=== PATIENT | female | born 1945 | race African-American/Black ===

== ENCOUNTER 2018-09-09 16:13 | Inpatient (IN) | payer MEDICARE, OTHER ==
[~2018-09-09] VITALS: Ht 160 cm; Wt 57.9 kg
[2018-09-09] VITALS (8 sets, daily range): BP systolic 80–113; BP diastolic 19–88
[2018-09-09] MEDS ORDERED: SODIUM CHLORIDE 0.9% 1,000 ML IVB ONE (16:38)
[2018-09-09] MEDS ORDERED: PANTOPRAZOLE 40 MG/10 ML VIAL IV ONE (16:45)
[2018-09-09 17:09] LABS: Eosinophils # (auto) 0 uL; Hemoglobin 7.8 g/dL (12.2-16.2); Monocytes # (auto) 0.4 uL; Red Cell Distribution Width 18.9 % (11.8-14.3)
[2018-09-09 17:10] LABS: Basophils # (auto) 0.1 uL; Basophils % (auto) 0.7 % (0.0-2.0); Eosinophils % (auto) 0.2 % (0.0-7.0); Lymphocytes # (auto) 0.7 uL; Lymphocytes % (auto) 7.1 % (10.0-50.0); Mean Corpuscular Hemoglobin 19.4 pg (28.0-32.0); Mean Corpuscular Hgb Conc. 30.1 g/dL (32.0-36.0); Mean Corpuscular Volume 64.5 fL (80.0-100.0); Monocytes % (auto) 3.4 % (0.0-12.0); Neutrophils # (auto) 9.3 uL; Neutrophils % (auto) 88.6 % (37.0-80.0); Red Blood Cells 4.02 10^6/uL (4.0-5.20); White Blood Cell 10.5 10^3/uL (4.4-10.8)
[2018-09-09 17:15] LABS: Platelet Count (auto) 912 10^3/uL (140-450)
[2018-09-09 17:21] LABS: Amylase 66 U/L (25-115); Lipase 137 U/L (73-393)
[2018-09-09 17:24] LABS: Albumin 2.5 g/dL (3.4-5.0); Anion Gap 9 (5-15); Calcium 8.1 mg/dL (8.5-10.1); Carbon Dioxide 20 mmol/L (21-32); Chloride 106 mmol/L (98-107); Glucose 125 mg/dL (74-106); Magnesium 2.5 mg/dL (1.6-2.6); Sodium 135 mmol/L (136-145)
[2018-09-09 17:28] LABS: Alanine Aminotransferase 8 U/L (13-56); Alkaline Phosphatase 80 U/L (45-117); Aspartate Aminotransferase 8 U/L (15-37); BUN/Creatinine Ratio 15.2; Bilirubin, Total 0.2 mg/dL (0.2-1.0); GFR African American 7 mL/min; GFR Non-African American 5 mL/min; Total Protein 7.5 g/dL (6.4-8.2)
[2018-09-09 17:37] LABS: Blood Urea Nitrogen 120 mg/dL (7-18); Potassium 8.2 mmol/L (3.5-5.1)
[2018-09-09] MEDS ORDERED: PHYTONADIONE (VIT K)10 MG/ML 1ML VIAL SUBCUT ONE (18:15)
[2018-09-09 19:18] LABS: Basophils # (auto) 0.1 uL; Eosinophils # (auto) 0 uL; Mean Corpuscular Volume 64.5 fL (80.0-100.0); Monocytes # (auto) 0.5 uL; White Blood Cell 11.4 10^3/uL (4.4-10.8)
[2018-09-09 19:20] LABS: Basophils % (auto) 0.5 % (0.0-2.0); Eosinophils % (auto) 0.2 % (0.0-7.0); Hematocrit 26.1 % (36.0-46.0); Lymphocytes # (auto) 0.7 uL; Lymphocytes % (auto) 6.3 % (10.0-50.0); Mean Corpuscular Hemoglobin 19.9 pg (28.0-32.0); Mean Corpuscular Hgb Conc. 30.8 g/dL (32.0-36.0); Monocytes % (auto) 4.4 % (0.0-12.0); Neutrophils % (auto) 88.6 % (37.0-80.0); Red Blood Cells 4.04 10^6/uL (4.0-5.20); Red Cell Distribution Width 18.6 % (11.8-14.3)
[2018-09-09 19:35] LABS: Platelet Count (auto) 777 10^3/uL (140-450)
[2018-09-09 19:38] LABS: Albumin 2.2 g/dL (3.4-5.0); Calcium 7.7 mg/dL (8.5-10.1)
[2018-09-09 19:42] LABS: BUN/Creatinine Ratio 16.1; Bilirubin, Total 0.3 mg/dL (0.2-1.0); Total Protein 6.5 g/dL (6.4-8.2)
[2018-09-09 20:05] LABS: Potassium 7.9 mmol/L (3.5-5.1)
[2018-09-09] MEDS ORDERED: DEXTROSE (50%) 50ML SYRG IV ONE (20:15)
[2018-09-09] MEDS ORDERED: CALCIUM CHL 100MG/ML 1,000 MG in D5W 5% 100 ML IV ONE (20:15)
[2018-09-09] MEDS ORDERED: SODIUM BICARBONATE 8.4% INJ 50ML SYRINGE IV ONE (20:15)
[2018-09-09] MEDS ORDERED: CALCIUM GLUC 4.65meq/50ml D5AE 50 ML IV ONE (20:15)
[2018-09-09] MEDS ORDERED: InsuLIN REG 1unit/0.01ml Soln (100units/ml) IV ONE (20:15)
[2018-09-09] MEDS ORDERED: ACETAMINOPHEN 500 MG TAB PO PRN (21:30)
[2018-09-09] MEDS ORDERED: VANCOMYCIN PER PHARMACY 0 MG IV SCH (22:00)
[2018-09-09] MEDS ORDERED: CALCIUM CHLOR(10%) 100MG/ML 10ML SYRINGE IV ONE (22:19)
--- NOTE | 2018-09-09 22:21 | NUR ---
Respiratory note: ASSESSMENT FOR PRN MED NEB TX. HR 91, SPO2 98% ON 2LNC, RR 17, BS CLEAR/DIMINISHED. PT PRESENTING NO RESPIRATORY DISTRESS AT THIS TIME, MED NEB TX NOT INDICATED. PT AWARE TO HAVE RN PAGE RT IF MED NEB TX IS NEEDED, WILL CONTINUE TO MONITOR.
[2018-09-10] VITALS (15 sets, daily range): BP systolic 102–145; BP diastolic 60–82
[2018-09-10] MEDS ORDERED: oxyCODONE ER 10 MG TAB PO ONE (01:15)
[2018-09-10] MEDS ORDERED: VANCOMYCIN 500 MG in D5W 5% 100 ML IV ONE (02:30)
[2018-09-10] MEDS: SODIUM CHLORIDE 0.9% 1,000 ML IV SCH ×4 (04:00→20:27)
[2018-09-10] MEDS ORDERED: VANCOMYCIN 1GM/250ML 250 ML IV ONE (05:00)
[2018-09-10 06:04] LABS: Basophils # (auto) 0.1 uL; Eosinophils # (auto) 0.2 uL; Hemoglobin 8.3 g/dL (12.2-16.2); Monocytes # (auto) 0.5 uL
[2018-09-10 06:05] LABS: Basophils % (auto) 0.9 % (0.0-2.0); Eosinophils % (auto) 2.1 % (0.0-7.0); Hematocrit 25.1 % (36.0-46.0); Lymphocytes # (auto) 1.5 uL; Lymphocytes % (auto) 15.2 % (10.0-50.0); Mean Corpuscular Hemoglobin 24.1 pg (28.0-32.0); Mean Corpuscular Hgb Conc. 33.3 g/dL (32.0-36.0); Mean Corpuscular Volume 72.5 fL (80.0-100.0); Monocytes % (auto) 5.4 % (0.0-12.0); Neutrophils # (auto) 7.4 uL; Neutrophils % (auto) 76.4 % (37.0-80.0); Platelet Count (auto) 539 10^3/uL (140-450); Red Blood Cells 3.46 10^6/uL (4.0-5.20); White Blood Cell 9.7 10^3/uL (4.4-10.8)
[2018-09-10 06:11] LABS: INR 2.08 (0.9-1.15); Prothrombin Time 21.4 sec (9.27-12.13)
[2018-09-10 06:15] LABS: BUN/Creatinine Ratio 16.6; Calcium 8.6 mg/dL (8.5-10.1)
[2018-09-10 06:22] LABS: Potassium 5.8 mmol/L (3.5-5.1)
--- NOTE | 2018-09-10 07:10 | NUR ---
PT. ASSESSED FOR PRN. MN. TX. , NO RESP. DISTRESS OR SOB NOTED. PT. IS RESTING AT THIS TIME. BS. ARE DIMINISHED AND CLEAR. ZR=433,RR=18,SP02=97% ON 3LPM NC. PRN. TX. NOT INDICATED, NO TX. GIVEN. PT. MAY CALL IF NEEDED.
--- NOTE | 2018-09-10 10:40 | NUR ---
Telemetry admit from ER JEFERSON GE admitted to Telemetry unit after SBAR received by Yvette KHALIL RN. Patient able to answer questions appropriately but noted mild confusion. Patient oriented to Tita Ramos, primary RN, unit, room, bed, and unit policies regarding patient care and visiting hours. Patient now on continuous telemetry monitoring, tele box #23. Unable to visualize tele rhythm at this time, per telephonic case manager Katie she only has tele boxes for [place] monitor ans she states she has notified charge and house sup and they okay'd. Per Katie, she will inform me of any changes to cardiac rhythm since I cannot visualize monitor at this time. Telemetry reading on arrival to unit is sinus tach HR 130's per tele monitor Katie. Patient on room air sat 96%. Unable to obtain accurate weight at this time due to bed malfunction and unable to zero out. Fall precs in place per protocol. Pt encouraged to call if they need something. All questions and concerns addressed, patient verbalized understanding but noted anxious, suspicious. I have reoriented patient and she verbalzied understanding. Will cont care
--- NOTE | 2018-09-10 11:00 | NUR ---
WOUND CARE NOTE: IN TO SEE PATIENT AT THIS TIME PER WOUND CARE CONSULT REQUEST. [facility] COUMADIN TOXICITY. CURRENT JAXON SCORE IS 12. SHE RECENTLY TRANSFERRED TO [facility] FLOOR FROM ER. PATIENT NOTED UPON ADMIT TO HAVE MULTIPLE SKIN INTEGRITY ISSUES. WOUND CONSULT ORDERED WHILE PATIENT STILL IN ER. PATIENT APPEARS CONFUSED. SHE IS ABLE TO ASSIST WITH HER TURNING/REPOSITIONING. 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 SHE DOES HAVE TWO SMALL FULL THICKNESS DFU ULCERS TO STUMP, MEASURING 1.8 X 1.2 CM AND 0.7 X 0.7 CM. WOUNDS COVERED WITH BROWN ESCHAR, NON DRAINING. 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 WOUND MEASURES 4 X 2 CM. WOUND COVERED WITH BROWN ESCHAR. PATIENT HAS MULTIPLE SCARS TO SACRUM, RIGHT/LEFT HIPS. SHE HAS SMALL OPEN PRESSURE ULCER OVER RIGHT SACRUM AND RIGHT HIP. APPLIED ZGUARD AND OPTIFOAM GENTLE DRESSINGS.WOUND PHOTOS TAKEN AT THIS TIME FOR REFERENCE. SKIN/WOUND CARE PLAN IMPLEMENTED. RECOMMEND: FREQUENT TURN SCHEDULED Q 2 HOURS, PRN CONDITION PERMITS, WITH PRESSURE REDISTRIBUTION USING PILLOWS/WEDGES, BID/PRN APPLICATION WITH ZGUARD TO RIGHT HIP AND SACRAL WOUND, COVERING WITH OPTIFOAM GENTLE DRESSINGS, EOD/PRN: BETADINE TO RIGHT STUMP AND HEEL ULCERS, COVERING WITH TELFA AND KERLIX WRAP, DIETARY CONSULT, CONTINUED MONITORING BY WOUND CARE TEAM. Addendum: 09/10/18 at 1803 by Tasha Hall RN Amended: Links added.
[2018-09-10] MEDS: PANTOPRAZOLE 40 MG/10 ML VIAL IV SCH (11:39)
[2018-09-10] MEDS: HYDROcodone-ACET 5/325MG TAB PO PRN (12:04)
--- NOTE | 2018-09-10 12:15 | NUR ---
Agitation Patient very agitated, attempting to get out of bed, states she needs to get "her puppy", states she needs to go home. Pt crying, trying to pull IV out. Attempted to calm patient down and reorient but unsuccessful at this time. MD Morales aware and new orders for Arivan 0.5mg IV [id number] obtained. Per get security public safety officer at bedside, I informed battery charger conveyor line Yumiko but states no available staff at this time but she will get someone. New IV access obtained via clean sterile technique by inserting 22 gauge catheter at LEFT FA after 2 attempt(s). IV secured properly. No trauma to site. Patient tolerated well. Will medicate as ordered. Fall precs in place per protocol. Bed alarm on at all times
[2018-09-10] MEDS: LORazepam 2MG/ML-1ML VIAL IV PRN (12:38)
--- NOTE | 2018-09-10 13:03 | NUR ---
Spoke to Hospitalist MD Morales at bedside assessed patient. aware of status including abnormal labs, vs, increased HR. New orders received. Will cont care
--- NOTE | 2018-09-10 13:50 | NUR ---
bellstand attendant at bedside Rebecca augustin at bedside for patient safety as instructed by MD Morales. Patient resting comfortably in bed in no acute distress or sob. Breathing non labored and symmetrical. Patient arousable to name. Will cont care.
[2018-09-10 14:55] LABS: BUN/Creatinine Ratio 16.1; Calcium 8.2 mg/dL (8.5-10.1)
[2018-09-10 15:22] LABS: INR > 10 (0.9-1.15)
[2018-09-10 15:31] LABS: Potassium 6.2 mmol/L (3.5-5.1)
--- NOTE | 2018-09-10 15:36 | NUR ---
Critical lab Paged MD Morales to notify of critical labs. New orders received for insulin 5 units IV once, Dextrose 50% i amp iv once, calcium gluc IV and sodium bicarb 1 amp 50 ml IV once per hyperkalemia protocol. Will medicate as ordered.
[2018-09-10] MEDS ORDERED: InsuLIN REG 1unit/0.01ml Soln (100units/ml) IV ONE (16:00)
[2018-09-10] MEDS ORDERED: SODIUM BICARBONATE 8.4% INJ 50ML SYRINGE IV ONE (16:00)
[2018-09-10] MEDS ORDERED: CALCIUM GLUC 4.65meq/50ml D5AE 50 ML IV ONE (16:00)
[2018-09-10] MEDS ORDERED: DEXTROSE (50%) 50ML SYRG IV ONE (16:00)
--- NOTE | 2018-09-10 16:45 | NUR ---
IV insertion IV access obtained, via clean sterile technique by inserting 20 gauge catheter at right upper arm after 1 attempt(s). IV secured properly. No trauma to site. Patient tolerated well.
[2018-09-10] MEDS ORDERED: SODIUM BICARBONATE 8.4 % INJ 50ML VIAL IV ONE ×2 (17:00→18:30)
--- NOTE | 2018-09-10 17:02 | NUR ---
Sole Tacker at bedside MD Barajas at bedside, aware of patients status, abnormal labs including critical labs and hyperkalemia treatment to be given as ordered. Pt had moderate amount of black liquid stool, assessed at bedside. New orders received to bolus NS 1000ml IV once, NS at 125ml/hr and transfer to [facility]. I called charge attendant and informed her. Awaiting [facility] bed at this time.
--- NOTE | 2018-09-10 17:26 | NUR ---
[facility] bed assignment Room 262 with Yasmin arreola
[2018-09-10] MEDS ORDERED: SODIUM CHLORIDE 0.9% 1,000 ML IV ONE (17:30)
--- NOTE | 2018-09-10 18:10 | NUR ---
Patient transferred to [facility] Transferred patient to [facility] bed 262 care endorsed to Yasmin arreola. Pt transported via bed with ACLS guidelines and all personal belongings. No s/s of acute distress or sob noted. Pt on 2L n/c.
--- NOTE | 2018-09-10 18:20 | NUR ---
RECEIVED PATIENT FROM ROOM 285B BY THE BED, PATIENT UNRESPONSIVE AND WILL ONLY WITH DRAW TO PAIN AT THIS, FROM THE ATIVAN SHE WAS GIVEN, NS INFUSING AT 1000ML/HR CONNECTED TO THE IV PUMP, CHUA TO GRAVITY, SALINE LOCK TO THE LFA INTACT AND PATENT 22G, PATIENT CLEANED HAS BURGUNDY STOOL COMING FROM TH RECTUM, VS 98.2-390-05-121/70 96% WILL CONTNINUE TO MONITOR AND GIVE REPORT TO THE NEXT SHIFT
[2018-09-10 18:40] LABS: Hematocrit 23.5 % (36.0-46.0); Hemoglobin 7.9 g/dL (12.2-16.2)
--- NOTE | 2018-09-10 19:40 | NUR ---
Opening Shift Note Assumed care of patient, resting with eyes closed, No S/S of distress/SOB or pain, opens eyes to physical stimuli and able to only state her name at this time, patient very sleepy/lethargic with VS WNL. Patient noted to have incontinence of stool (bright/burgundy liquid stool ) which was collected at this time for stool occult, GI consult pending. Patient perineal area cleansed with warm soapy water, new chux placed underneath and patient repositioned for comfort. Bed alarm placed, continue to monitor frequently.
--- NOTE | 2018-09-10 20:11 | NUR ---
Respiratory note: PT ASSESSED FOR PRN MED NEB TX. HR 110, SPO2 93%, RR 15, BS DIMINISHED. PT PRESENTING NO RESPIRATORY DISTRESS, RN AT BEDSIDE. WILL CONTINUE TO MONITOR.
[2018-09-10 22:35] LABS: Urine Bacteria NONE SEEN /hpf (None Seen); Urine Blood 1+ /uL (Negative); Urine Specific Gravity 1.006 (1.001-1.035); Urine WBC 2 /hpf (0 - 5)
[2018-09-11] VITALS: BP 143/94
[2018-09-11] MEDS: SODIUM CHLORIDE 0.9% 1,000 ML IV SCH (02:55)
[2018-09-11 04:00] VITALS: BP 146/66
--- NOTE | 2018-09-11 04:45 | NUR ---
AM CARE/LINEN CHANGE PATIENT NOTED TO HAVE BOWEL INCONTINENCE IN BED, STOOL CONTINUES TO BE BURGUNDY/RED IN COLOR AND LIQUID IN CONSISTENCY PERINEAL AREA CLEANSED WITH WARM SOAPY WATER AND PARTIAL BED BATH GIVEN PARTIAL BED LINEN CHANGE DONE, NEW GOWN PLACED ON PATIENT PATIENT REPOSITIONED IN BED FOR COMFORT
--- NOTE | 2018-09-11 05:15 | NUR ---
PATIENT IS VERY RESTLESS AND AGITATED, CRYING STATING " WHY ARE YOU DOING THIS TO ME?" "WHY ARE YOU TRYING TO HURT ME?" DURING SUPERVISOR SOLDERING ATTEMPTING TO GET MORNING LABS PATIENT CONTINUES TO BE REORIENTED AND ATTEMPT TO REASSURE PATIENT SHE IS IN THE HOSPITAL TAKEN CARE OF PATIENT NOW SEEMS TO BE MORE CALM ONCE REPOSITIONED IN BED AND COVERED WITH SHEETS BED ALARM CONTINUES TO BE IN PLACE CONTINUE TO MONITOR
[2018-09-11 06:08] LABS: Basophils # (auto) 0.1 uL; Basophils % (auto) 1.2 % (0.0-2.0); Eosinophils # (auto) 0.3 uL; Eosinophils % (auto) 2.9 % (0.0-7.0); Hematocrit 25.8 % (36.0-46.0); Hemoglobin 8.6 g/dL (12.2-16.2); Lymphocytes # (auto) 0.8 uL; Lymphocytes % (auto) 8.7 % (10.0-50.0); Mean Corpuscular Hemoglobin 23.8 pg (28.0-32.0); Mean Corpuscular Hgb Conc. 33.4 g/dL (32.0-36.0); Mean Corpuscular Volume 71.4 fL (80.0-100.0); Monocytes # (auto) 0.5 uL; Monocytes % (auto) 4.9 % (0.0-12.0); Neutrophils # (auto) 7.8 uL; Neutrophils % (auto) 82.3 % (37.0-80.0); Platelet Count (auto) 580 10^3/uL (140-450); Red Blood Cells 3.62 10^6/uL (4.0-5.20); White Blood Cell 9.5 10^3/uL (4.4-10.8)
[2018-09-11 06:12] LABS: Calcium 8.5 mg/dL (8.5-10.1)
[2018-09-11 06:13] LABS: Red Cell Distribution Width 26.1 % (11.8-14.3)
[2018-09-11 06:15] LABS: BUN/Creatinine Ratio 15.3
[2018-09-11 06:37] LABS: Potassium 5.7 mmol/L (3.5-5.1)
--- NOTE | 2018-09-11 06:59 | NUR ---
END OF SHIFT PATIENT IN BED RESTING WITH EYES CLOSED, NO S/S OF DISTRESS/SOB OR PAIN AT THIS TIME POX 98% BED ALARM ON PATIENT REMAINED STABLE THROUGHOUT THE NIGHT WILL ENDORSE CARE TO DAY SHIFT RN
--- NOTE | 2018-09-11 07:30 | NUR ---
RECEIVE PATIENT SEMI FOWLES IN BED, O2 AT 2L BY N/C, SALINE LOCK TO THE LFA INFILTRATED, ELICEO WITH NS AT 125ML/HR WITH INFILTRATION, NS STOPPED, CHUA TO GRAVITY, A/O TIMES 2 FOLLOWS COMMANDS BUT STATES SHE DOESN'T WANT TO BE BOTHERED, DENIES PAIN, NOT BEING VERY COOPERATIVE
[2018-09-11 07:50] VITALS: BP 155/86
[2018-09-11] MEDS ORDERED: SODIUM BICARBONATE 8.4 % INJ 50ML VIAL IV ONE (08:00)
[2018-09-11] MEDS ORDERED: InsuLIN REG 1unit/0.01ml Soln (100units/ml) IV ONE (08:00)
[2018-09-11] MEDS ORDERED: ALBUTEROL SULF 2.5 MG/0.5ML(0.5%) NEB SOLN NEB ONE (08:00)
[2018-09-11] MEDS ORDERED: DEXTROSE (50%) 50ML SYRG IV ONE (08:00)
--- NOTE | 2018-09-11 08:30 | NUR ---
PATIENT DIDN'T WANT ANY ONE TO TOUCH HER YELLING FOR US TO LEAVE HER ALONE, WE WERE TRYING TO HURT HER, TRIED TO EXPRESS TO THE PATIENT THAT WE HAVE TO TURN AND DO ASSESSMENT ON HER BUT SHE STATED THAT WAS NOT TRY ASK IF SHE KNOWS HER NAME AND STATED "DO YOU KNOW YOURS," ID FEED PATIENT WAITING FOR GI CONSULT, DUE TO BLEEDING DURING THE SEWING MACHINE OPERATOR SEMIAUTOMATIC
[2018-09-11] MEDS ORDERED: SODIUM BICARBONATE 8.4% INJ 50ML SYRINGE ONE (08:49)
--- NOTE | 2018-09-11 09:30 | NUR ---
WAITING FOR MIDLINE TO BE PLACED IV/ INFILTRATED TO MARKO ARMS
--- NOTE | 2018-09-11 09:30 | NUR ---
DR LLOYD IN TO SEE THE PATIENT AND WROTE ORDERS FOR THE HIGH POTASSIUM LEVEL
--- NOTE | 2018-09-11 09:45 | NUR ---
MIDLINE PLACEMENT Midline placed to the right upper arm via the brachial vein x1 attempt. 18g, 10cm. Positive blood return and flushes easily. Secured with a biodisk, securement device and transparent dressing.
--- NOTE | 2018-09-11 10:29 | NUR ---
Respiratory note: SPOKE TO MAHESH HOUSER RN IN REGARDS TO ASSESSING PATIENT FOR PRN BREATHING TX. MAHESH HOUSER REQUESTED TO LEAVE PATIENT SHE IS. PATIENT DOESN'T SEEM TO BE IN RESPIRATORY DISTRESS. RR 22, HR 145, SPO2 100% ON 4 L NASAL CANNULA. MILTON ARAGON IS AWARE TO HAVE ME PAGED IF PATIENT NEEDS BREATHING TX. WILL CONTINUE TO MONITOR PATIENT AND COMMUNICATION WITH RN.
--- NOTE | 2018-09-11 10:30 | NUR ---
EXPLAIN MEDICATIONS TO THE PATIENT REGARDING THE DOSAGE, USAGE, AND THE SIDE EFFECTS,
[2018-09-11] MEDS: PANTOPRAZOLE 40 MG/10 ML VIAL IV SCH ×2 (10:31→21:07)
--- NOTE | 2018-09-11 11:45 | NUR ---
MIDLINE 18G, PLACED TO THE ELICEO DUE TO OTHER IV, INFILTRATION TO THE LFA AND ELICEO BOTH REMOVED
[2018-09-11 11:50] VITALS: BP 111/51
--- NOTE | 2018-09-11 12:05 | NUR ---
FRIEND THAT LIVES CLOSE TO THE PATIENT A CAME TO SEE HER AND STATED SHE WOULD LET THE FAMILY KNOW SHE IS HERE
--- NOTE | 2018-09-11 12:30 | NUR ---
NURSE FROM [facility] CAME TO SEE THE PATIENT
[2018-09-11] MEDS: SODIUM BICARB 50ML SYR 50 ML in SOD CHL 0.45% 1,000 ML IV SCH (13:00)
--- NOTE | 2018-09-11 13:30 | NUR ---
DR JOE IN TO SEE THE PATIENT AND WROTE NEW ORDERS
--- NOTE | 2018-09-11 13:40 | NUR ---
DR ESPINOSA IN TO SEE THE PATIENT AND STATES, THAT HE IS GOING TO WAIT AND SEE IF HER HEART RATE COMES DOWN BEFORE HE WILL TAKE HER TO SURGERY
[2018-09-11] MEDS ORDERED: cefTRIAXone 1GM/50ML D5W 50 ML IV ONE (14:00)
--- NOTE | 2018-09-11 14:30 | NUR ---
PATIENT APPEARS TO BE SLEEPING BUT OPEN EYES WHEN YOU CALL HER NAME
--- NOTE | 2018-09-11 14:31 | NUR ---
Nutrition Assessment/consult Notes please see attached link fro complete assessment Est. Needs BW [id number] kcal (25-30 kcal/kgBW), 42-53 gms pro (0.8-1.0 gms/kgBW r/t elev RFT). Will continue to monitor pertinent labs and reassess nutrient needs prn. Addendum: 09/11/18 at [address] Amended: Links added.
--- NOTE | 2018-09-11 15:30 | NUR ---
SAT UP AND DRANK SOME WATER BUT WENT BACK TO SLEEP
[2018-09-11 15:51] VITALS: BP 107/74
[2018-09-11 16:03] LABS: Lactic Acid w/Reflex 4.1 mmol/L (0.4-2.0)
--- NOTE | 2018-09-11 16:05 | NUR ---
SPOKE TO THE FAMILY ON THE PHONE AND THE GRANDDAUGHTER CAME TO VISIT THE PATIENT, BUT SHE WOULD NOT TALK TO HER WHEN SHE WOKE HER BUT PATIENT APPEARED TO KNOW WHO SHE WAS
--- NOTE | 2018-09-11 17:35 | NUR ---
WOKE PATIENT UP AND GAVE HER A DRINK OF WATER
--- NOTE | 2018-09-11 18:03 | NUR ---
SITTING UP IN THE BED WITH EYE CLOSED, APPEARS TO BE SLEEPING BUT OPEN HER EYES AND WILL TALK TO YOU IF YOU WAKE HER UP
--- NOTE | 2018-09-11 18:30 | NUR ---
SEMI FOWLERS IN BED APPEARS TO BE SLEEPING EYES CLOSED, .45 WITH SODIUM BICARB INFUSING AT 75ML/HR INTO THE ELICEO MIDLINE BY THE IV PUMP, CHUA TO GRAVITY, DRESSING TO THE RT FOOT INTACT, NO COMPLAINTS OF PAIN WILL CONTNINUE TO MONITOR AND GIVE REPORT TO THE NEXT SHIFT
--- NOTE | 2018-09-11 19:45 | NUR ---
PATIENT KIERSTEN EARLY AND NEPHCHIP AT PATIENT [facility]
[2018-09-11 19:50] VITALS: BP 132/70
[2018-09-11] MEDS: HYDROcodone-ACET 5/325MG TAB PO PRN (21:08)
--- NOTE | 2018-09-11 21:45 | NUR ---
LAB AT BEDSIDE ATTEMPTING TO DRAW BLOOD PATIENT VERY UNCOOPERATIVE AT THIS TIME YELLING " DON'T TOUCH ME, LEAVE ME ALONE" AND PULLING ARM AWAY FROM RELIEF SALESPERSON. PATIENT VERY RESTLESS AND HOSTILE LAB INFORMED TO TRY AGAIN IN THE MORNING
--- NOTE | 2018-09-11 21:45 | NUR ---
SPOKE WITH HOSPITALIST TEMITOPE NORRIS OVER THE PHONE UPDATED ON PATIENT STATUS AND REASON FOR [facility]IM XFER
[2018-09-12] VITALS (9 sets, daily range): BP systolic 116–158; BP diastolic 57–95
--- NOTE | 2018-09-12 00:33 | NUR ---
RIGHT UPPER ARM MIDLINE DRESSING CHANGE DONE USING STERILE TECHNIQUE PATIENT TOLERATED WELL
[2018-09-12] MEDS: HYDROcodone-ACET 5/325MG TAB PO PRN ×3 (01:21→22:15)
--- NOTE | 2018-09-12 04:00 | NUR ---
PT SEEN SLEEPING IN BED ON 3L NC, SPO2 100%, BS CLEAR AND DIMINISHED. NO RESP DISTRESS NOTED. NO PRN NEB TX INDICATED AT THIS TIME.
--- NOTE | 2018-09-12 04:30 | NUR ---
AM CARE/WOUND CARE PATIENT HAD EPISODE OF STOOL INCONTINENCE, NOTED TO BE LIQUID AND BLOODY. GIVEN PARTIAL BED BATH AND PERINEAL AREA CLEANSED USING WARM SOAPY WATER. SKIN INTEGRITY REASSESSED FOR ANY CHANGES AT THIS TIME. RIGHT HIP AND BUTTOCK DRESSING WYNN DONE PER ORDERS. Z-GUARD APPLIED TO COCCYX/SACRUM. PARTIAL LINEN CHANGE DONE AND NEW GOWN PLACED ON PATIENT. RIGHT FOREFRONT AND HEEL WOUND CARE DONE AND DRESSING DONE PER ORDERS. PATIENT REPOSITIONED FOR COMFORT.
--- NOTE | 2018-09-12 04:35 | NUR ---
POM COLLECTED PATIENT STATES SHE TAKES OXYCODONE FOR PAIN MANAGEMENT AND PILLS ARE IN HER PURSE. EDUCATED PATIENT ON THIS RN INPUTTING THEM INTO MED REC AND HOSPITAL POLICY REGARDING MEDICATION AT BEDSIDE. INSTRUCTED PATIENT MEDICATION WILL BE TAKEN TO PHARMACY. PATIENT VERBALIZES UNDERSTANDING. PILL COUNT VERIFIED WITH RN RENO AT BEDSIDE. WILL SEND TO PHARMACY . COPY GIVEN TO PATIENT AND SECOND COPY PLACED IN HARD CHART.
--- NOTE | 2018-09-12 04:45 | NUR ---
PATIENT MOOD PATIENT IS VERY ANXIOUS AND COMBATIVE, STATING WE ARE HURTING HER WHEN ASSESSING VITAL SIGNS. PATIENT MOOD IS VERY LABILE:ANGRY AND HOSTILE ONE MOMENT AND CRYING THE NEXT. CONTINUES TO BE VERY AGGRESSIVE AND RESISTANT TO CARE.PATIENT HAS PERIODS OF CONFUSION WHEN DOING WOUND CARE PATIENT DOES NOT REMEMBER WOUNDS ON RIGHT FOOT DESPITE BEING ADMITTED WITH THEM. PATIENT YELLING "WHY DO YOU WANT TO KILL ME" ASSURED PATIENT WE ARE DOING OUR BEST TO CARE FOR HER AND REORIENTED FREQUENTLY THROUGHOUT THE NIGHT. ATIVAN PRN WILL BE GIVEN PER ORDERS. CONTINUE TO MONITOR.
[2018-09-12] MEDS: SODIUM BICARB 50ML SYR 50 ML in SOD CHL 0.45% 1,000 ML IV SCH ×2 (04:49→15:57)
[2018-09-12] MEDS: LORazepam 2MG/ML-1ML VIAL IV PRN (04:56)
[2018-09-12 05:52] LABS: Basophils # (auto) 0 uL; Basophils % (auto) 0.5 % (0.0-2.0); Eosinophils # (auto) 0.3 uL; Eosinophils % (auto) 3.8 % (0.0-7.0); Lymphocytes # (auto) 0.9 uL; Lymphocytes % (auto) 10.8 % (10.0-50.0); Mean Corpuscular Hemoglobin 23.6 pg (28.0-32.0); Neutrophils # (auto) 6.4 uL; White Blood Cell 8.3 10^3/uL (4.4-10.8)
[2018-09-12 05:56] LABS: Hematocrit 23.5 % (36.0-46.0); Hemoglobin 7.8 g/dL (12.2-16.2); Mean Corpuscular Volume 71.4 fL (80.0-100.0); Monocytes # (auto) 0.7 uL; Monocytes % (auto) 8.3 % (0.0-12.0); Neutrophils % (auto) 76.6 % (37.0-80.0); Platelet Count (auto) 534 10^3/uL (140-450)
[2018-09-12 06:01] LABS: Red Cell Distribution Width 27.1 % (11.8-14.3)
[2018-09-12 06:02] LABS: INR 1.16 (0.9-1.15); Prothrombin Time 12.3 sec (9.27-12.13)
[2018-09-12 06:11] LABS: Potassium 4.7 mmol/L (3.5-5.1)
[2018-09-12 06:15] LABS: BUN/Creatinine Ratio 13.9
--- NOTE | 2018-09-12 06:26 | NUR ---
Respiratory note: ROUTINE PRN CHECK. HR 107, RR16, POX 100% ON 2L/M NC, BREATH SOUNDS ARE CLEAR. NO SOB OR DISTRESS NOTED. PT WAS NOTIFY TO HAVE RN PAGE RT FOR MN TX.
--- NOTE | 2018-09-12 07:25 | NUR ---
CARE ENDORSED TO DAY SHIFT RN CHERYL ENDORSED POM TO RN,PATIENT IN BED RESTING WITH EYES CLOSED, VS WNL POX 100%, HR 108. NO DISTRESS/SOB NOTED, BED ALARM ON.
--- NOTE | 2018-09-12 10:38 | NUR ---
Dr Barajas at bedside to assess patient, updated on patient status. Received verbal order for Neuro and Social Service Consult. Read back and verified. Will carry out.
[2018-09-12] MEDS: cefTRIAXone 1GM/50ML D5W 50 ML IV SCH (11:05)
[2018-09-12] MEDS: PANTOPRAZOLE 40 MG/10 ML VIAL IV SCH ×2 (11:05→22:00)
--- NOTE | 2018-09-12 11:18 | NUR ---
Dr Morales at bedside to assess patient, updated on patient's status. Received verbal order to transfuse 1 unit PRBC, read back and verified. Will carry out.
--- NOTE | 2018-09-12 12:03 | NUR ---
Ultrasound personnel at bedside to check RT Upper Arm for DVT, patient yelling, screaming and refusing stating "It's hurting, you're trying to kill me, leave me alone, they already know I have a clot in that arm." Educated on importance of being able to check arm for clots, patient still refusing.
--- NOTE | 2018-09-12 14:15 | NUR ---
Dr Nolasco at bedside to assess patient, updated on patient's status. Will carry out new orders.
--- NOTE | 2018-09-12 14:30 | NUR ---
Patient had moderate amount of liquid bloody stool, given perineal care. Skin integrity assessed for any changes. Linens changed. Patient repositioned for comfort.
[2018-09-12] MEDS ORDERED: VANCOMYCIN 500 MG in D5W 5% 100 ML IV ONE (15:30)
--- NOTE | 2018-09-12 16:23 | NUR ---
Paged Dr Morales and called back. Made aware of RT arm venous US report, RT brachial DVT and RT basilic and cephalic superficial thrombus. Received telephone order to discontinue Midline and insert PICC line. Made aware of patient BP 158/81, received telephone orders for Catapres PRN. Orders read back and verified. Will carry out.
[2018-09-12] MEDS ORDERED: cloNIDine HCL 0.1 MG TAB PO PRN (16:45)
--- NOTE | 2018-09-12 16:50 | NUR ---
Paged PICC line RN via PBX, awaiting call back.
--- NOTE | 2018-09-12 18:41 | NUR ---
Paged Dr Euceda and called back, updated on patient's status. Made aware this is a GI bleed patient with RT brachial DVT, RT basilic and cephalic superficial thrombus base on venous ultrasound report. Per Dr Euceda he will see patient in the morning.
--- NOTE | 2018-09-12 18:43 | NUR ---
Re-paged adaptive physical education teacher PICC line RN, awaiting call back.
--- NOTE | 2018-09-12 18:59 | NUR ---
Patient refused to be turn at this time and states "leave me alone lady"
--- NOTE | 2018-09-12 21:03 | NUR ---
PAGE TO HOUSE SUP REGARDING MIDLINE
--- NOTE | 2018-09-12 22:19 | NUR ---
Respiratory note: PT SEEN AND ASSESSED FOR PRN MED NEB TX AT 2219. TX NOT INDICATED AT THIS TIME. PT DENIES ANY RESPIRATORY DISTRESS. HR 99 RR 20 POX 100% ON 2L NASAL CANNULA. BREATH SOUNDS WERE CLEAR AND DIMINISHED. PT AWARE TO CALL FOR RT IF ANY DISTRESS OCCURS.
--- NOTE | 2018-09-12 23:00 | NUR ---
IV insertion IV access obtained by Corey hurdsuperintendent house, via clean sterile technique by inserting 22 gauge catheter at left wrist after 2 attempt(s). IV secured properly. No trauma to site. Patient tolerated well. NOTE: Midline to right upper arm d/c, pressure dressing applied, catheter intact.
[2018-09-13] VITALS: BP 147/76
[2018-09-13] MEDS ORDERED: SODIUM BICARBONATE 8.4% INJ 50ML SYRINGE ONE (02:57)
--- NOTE | 2018-09-13 03:20 | NUR ---
AM CARE / DRESSING CHANGE PATIENT HAD INCONTINENCE, DARK TARRY STOOL NOTED. PERINEAL AREA CLEANSED AND COMPLETE BED BATH GIVEN USING WARM SOAPY WATER. SKIN INTEGRITY REASSESSED AT THIS TIME. NO NEW CHANGES. PARTIAL BED LINEN CHANGE DONE AND NEW GOWN PLACED ON PATIENT. WOUND CARE DONE TO LEFT HIP AND NEW OPTIFOAM PLACED. ZGUARD CREAM APPLIED AND OPTIFOAM TO SACRUM/COCCYX FOR PREVENTION OF BED SORES. LOTION PLACED OVER BODY PER PATIENT REQUEST. PATIENT REPOSITIONED IN BED FOR COMFORT . BED ALARM ON.
[2018-09-13] MEDS: SODIUM BICARB 50ML SYR 50 ML in SOD CHL 0.45% 1,000 ML IV SCH ×2 (03:27→20:00)
[2018-09-13] MEDS: HYDROcodone-ACET 5/325MG TAB PO PRN ×4 (03:27→22:06)
[2018-09-13 06:16] LABS: INR 1.07 (0.9-1.15); Prothrombin Time 11.4 sec (9.27-12.13)
[2018-09-13 06:17] LABS: Albumin 1.9 g/dL (3.4-5.0); Anion Gap 8 (5-15); Calcium 8.1 mg/dL (8.5-10.1); Carbon Dioxide 29 mmol/L (21-32); Chloride 105 mmol/L (98-107); Glucose 90 mg/dL (74-106); Potassium 4.5 mmol/L (3.5-5.1); Sodium 142 mmol/L (136-145)
[2018-09-13 06:21] LABS: Alanine Aminotransferase < 6 U/L (13-56); Alkaline Phosphatase 63 U/L (45-117); Aspartate Aminotransferase 15 U/L (15-37); BUN/Creatinine Ratio 13.2; Bilirubin, Total 0.4 mg/dL (0.2-1.0); GFR African American 8 mL/min; GFR Non-African American 7 mL/min
[2018-09-13 06:24] LABS: Basophils # (auto) 0.1 uL; Basophils % (auto) 1.1 % (0.0-2.0); Blood Urea Nitrogen 86 mg/dL (7-18); Eosinophils # (auto) 0.6 uL; Eosinophils % (auto) 6.7 % (0.0-7.0); Hematocrit 29.7 % (36.0-46.0); Hemoglobin 9.7 g/dL (12.2-16.2); Lymphocytes # (auto) 0.4 uL; Lymphocytes % (auto) 5.3 % (10.0-50.0); Mean Corpuscular Hemoglobin 23.9 pg (28.0-32.0); Mean Corpuscular Hgb Conc. 32.5 g/dL (32.0-36.0); Mean Corpuscular Volume 73.4 fL (80.0-100.0); Monocytes # (auto) 0.5 uL; Neutrophils # (auto) 6.6 uL; Neutrophils % (auto) 80.9 % (37.0-80.0); Platelet Count (auto) 545 10^3/uL (140-450); Red Blood Cells 4.04 10^6/uL (4.0-5.20); White Blood Cell 8.2 10^3/uL (4.4-10.8)
[2018-09-13 06:30] LABS: Red Cell Distribution Width 27.6 % (11.8-14.3)
--- NOTE | 2018-09-13 07:30 | NUR ---
RECEIVED PATIENT SITTING UP IN THE BED A/O TIMED 3. O2 BY R/A, .45 WITH SODIUM BICAB INFUSING INTO THE LEFT WRIST BY THE IV PUMP, CHUA TO GRAVITY, PLACED THE RT ARM UP ON A PILLOW DUE TO SWELLING, DRESSING TO THE RT FOOT, DENIES PAIN AT THIS TIME
--- NOTE | 2018-09-13 07:45 | NUR ---
DR HERNDON IN TO SEE THE PATIENT AND ORDERED A CT OF THE HEAD AND EEG
[2018-09-13 07:59] VITALS: BP 130/75
--- NOTE | 2018-09-13 08:29 | NUR ---
PICC LINE CONSULT SPOKE TO MILTON MOJICA. CONSENT SIGNATURE PENDING AT THIS TIME, ADVISED TO NOTIFY AT 4141 WHEN CONSENT IS SIGNED.
--- NOTE | 2018-09-13 08:30 | NUR ---
PATIENT WAS FEED HER BREAKFAST AND TOLERATED
--- NOTE | 2018-09-13 09:15 | NUR ---
DR LLOYD AND DR SIERRA IN TO SEE THE PATIENT
[2018-09-13] MEDS: cefTRIAXone 1GM/50ML D5W 50 ML IV SCH (09:33)
[2018-09-13] MEDS: PANTOPRAZOLE 40 MG/10 ML VIAL IV SCH ×2 (09:33→22:06)
--- NOTE | 2018-09-13 09:35 | NUR ---
MEDS EXPLAIN TO THE PATIENT REGARDING THE DOSAGE, USAGE, SIDE EFFECTS, AND VERBALIZED THAT SHE UNDERSTOOD AND MEDS GIVEN ORDERED
--- NOTE | 2018-09-13 10:00 | NUR ---
TALKING ON THE PHONE TO HER DAUGHTER
--- NOTE | 2018-09-13 10:00 | NUR ---
DR JOE IN TO SEE THE PATIENT AND SPOKE TO HER REGARDING THE POC FOR TODAY
--- NOTE | 2018-09-13 10:20 | NUR ---
PATIENT TO CT BY THE BED WITH NURSE SP ROSE
[2018-09-13] MEDS ORDERED: HEPARIN SODIUM (PORCINE) 5000 UNITS/ML 1ML VIAL IV SCH (10:45)
--- NOTE | 2018-09-13 10:51 | NUR ---
BACK FROM THE CT OF THE HEAD
--- NOTE | 2018-09-13 10:57 | NUR ---
FRIEND MINERVA IN TO SEE THE PATIENT
--- NOTE | 2018-09-13 11:04 | NUR ---
NOTIFIED NEIL ROSE THAT THE PICC LINE CONSENT WAS SIGNED BY THE MD AND X-RAY OF THE LEFT ARM WAS NEGATIVE FOR A DVT
[2018-09-13 11:06] LABS: Basophils # (auto) 0.1 uL; Eosinophils # (auto) 0.6 uL; Lymphocytes # (auto) 0.5 uL; Neutrophils # (auto) 8.8 uL
[2018-09-13 11:09] LABS: Basophils % (auto) 0.8 % (0.0-2.0); Eosinophils % (auto) 5.6 % (0.0-7.0); Hematocrit 33.3 % (36.0-46.0); Lymphocytes % (auto) 4.4 % (10.0-50.0); Mean Corpuscular Hemoglobin 24.3 pg (28.0-32.0); Mean Corpuscular Hgb Conc. 32.9 g/dL (32.0-36.0); Mean Corpuscular Volume 73.7 fL (80.0-100.0); Monocytes # (auto) 0.6 uL; Monocytes % (auto) 5.6 % (0.0-12.0); Neutrophils % (auto) 83.6 % (37.0-80.0); Platelet Count (auto) 681 10^3/uL (140-450); Red Blood Cells 4.53 10^6/uL (4.0-5.20); White Blood Cell 10.6 10^3/uL (4.4-10.8)
[2018-09-13 11:14] LABS: Red Cell Distribution Width 27.3 % (11.8-14.3)
[2018-09-13 11:25] LABS: INR 1.07 (0.9-1.15); Partial Thromboplastin Time 27.9 sec (23.78-33.04); Prothrombin Time 11.4 sec (9.27-12.13)
--- NOTE | 2018-09-13 11:43 | NUR ---
MEDICATED FOR PAIN WITH NORCO FOR PAIN TO THE RT LEG 05/24
[2018-09-13 11:50] VITALS: BP 150/77
--- NOTE | 2018-09-13 11:51 | NUR ---
NEIL RN HERE TO SE THE PATIENT THE PICC LINE NURSE
--- NOTE | 2018-09-13 12:55 | NUR ---
DR ESPINOSA IN TO SEE THE PATIENT
--- NOTE | 2018-09-13 13:13 | NUR ---
PICC/Midline placement Patient educated on need for PICC line placement. All risks and benefits explained and all questions and concerns addressed prior to procedure. Noted past medical history and allergies with no contraindications. INR and Plt counts within acceptable range. 5 fr PICC line inserted via left brachial vein using [employer] US and Tip Location System. There was difficulty for PICC line to go down to SVC, PICC line looped several times at axillary area. After multiple attempts to thread the 41 cm PICC line in, it had to bed cut to 31 cm and leave it right before looping. EBL approcimately 10 mls. Tolerated well during procedure with help of primary RN, Yasmin, who comforted her during the procedure. Sterile technique with maximum barrier precautions utilized. Blood return obtained only from two of the three lumens, three lumens each flushed easily with NS using proper technique. PICC secured with Stat-lock; biodisc and occlusive dressing applied. Stat portable chest x-ray obtained for PICC/midline tip placement. *Baseline Arm Circumference 29. *Internal Length 31 cm. *External Length 3 cm. *PICC lot #[id number].
[2018-09-13] MEDS ORDERED: LIDOCAINE 1% (LOCAL ANESTH.) PF 5ml SDV ID ONE (13:15)
--- NOTE | 2018-09-13 13:23 | NUR ---
PER DR JOE HE SPOKE WITH DR NOE REGARDING THE PODIATRY CONSULT
[2018-09-13] MEDS: HEPARIN DRIP/D5W 100UNITS/ML 250 ML IV SCH (13:45)
--- NOTE | 2018-09-13 13:45 | NUR ---
HEPARIN STARTED AT 9ML/HR INFUSING INTO THE ELICEO PICC LINE
--- NOTE | 2018-09-13 14:17 | NUR ---
Okay to use PICC line X-ray completed per report it is a PICC line at the subclavian area.Primary RN notified.
--- NOTE | 2018-09-13 14:55 | NUR ---
DR PACHECO HERE AND DRESSING REMOVED AND ORDERS GIVEN FOR X-RAYS FOR THE PATIENT
--- NOTE | 2018-09-13 14:59 | NUR ---
Nutrition Follow-up Notes Wt.: 54.0 kg Pt was sleeping with no family by bedside. per recods pt with Coumadin toxicity, GI bleed. pt with no distress noted. pt is currently on clear liq diet with inadequate PO of 25% x 3 per RN doc Est. Needs BW [id number] kcal (25-30 kcal/kgBW), 42-53 gms pro (0.8-1.0 gms/kgBW r/t elev RFT). Will continue to monitor pertinent labs and reassess nutrient needs prn. Labs: BUN 86 H, CREAT 6.51 H, ALB 1.9 L, CA 8.1 L. Skin: Senthil scale 11, high risk, multiple pressure ulcers per RN doc. refer to WC notes for details GI: Pt had 1 BM yesterday per front office director. PES: Altered nutrition related lab values r/t current/chronic medical condition aeb elev RFT, severe hypoalb Will continue to monitor PO intake, skin status, pertinent labs and weight trend. F/u in 2 to 3 days. Rec.: 1.) advance diet as medically feasible. 2) consider ensure clear 1 carton bid if pt continues on cld. 3) continue assistance with meals. 4) consider MVI/C bid. 5) continues current plan of care
--- NOTE | 2018-09-13 15:15 | NUR ---
X RAY HERE TAKING PICTURES OF THE RT FOOT
--- NOTE | 2018-09-13 15:32 | NUR ---
DRESSING CHANGED TO REPLACED TO THE RT FOOT,
[2018-09-13] MEDS: ALBUTEROL SULF 2.5 MG/0.5ML(0.5%) NEB SOLN NEB PRN (15:35)
[2018-09-13] MEDS: IPRATROPIUM BROM 0.5 MG/2.5ML INH SOL NEB PRN (15:35)
[2018-09-13 15:50] VITALS: BP 110/64
--- NOTE | 2018-09-13 15:54 | NUR ---
MEDICATED FOR PAIN WITH NORCO10/10 TO THE RT FOOT
--- NOTE | 2018-09-13 16:54 | NUR ---
SITTING UP IN BED TALKING TO HER NEPHEW
--- NOTE | 2018-09-13 18:36 | NUR ---
SITTING UP IN THE BED, O2 BY R/A, A/O TIMES 3, ABLE TO FOLLOW COMMANDS, HEPARIN INFUSING AT 9ML/HR BY THE IV PUMP INTO THE RICK PICC LINE AND .45 WITH SODIUM OF BICARB INFUSING INTO THE RICK PICC LINE AT 75ML/HR BY THE IV PUMP, CHUA TO GRAVITY, 22G SALINE LOCK TO THE LEFT WRIST, DRESSING TO THE RT FOOT, WILL CONTINUE TO MONITOR AND GIVE REPORT TO THE NEXT SHIFT
--- NOTE | 2018-09-13 19:01 | NUR ---
Respiratory note: ASSESSED PT FOR PRN MED NEB, PT SLEEPING AT THIS TIME, NO RESP DISTRESS NOTED, NO TX INDICATED, PULSE OX 96% ON RA, HR 111, RR 20, BILATERAL BS CLEAR.
[2018-09-13 19:50] LABS: Hemoglobin 9.4 g/dL (12.2-16.2)
[2018-09-13 19:52] LABS: Hematocrit 28.3 % (36.0-46.0)
[2018-09-13 19:56] LABS: Folate (Folic Acid) 4.68 ng/mL (5.38-24)
[2018-09-13 19:57] VITALS: BP 88/45
[2018-09-13 20:48] LABS: INR 1.08 (0.9-1.15); Partial Thromboplastin Time 50.4 sec (23.78-33.04); Prothrombin Time 11.5 sec (9.27-12.13)
[2018-09-13] MEDS: SODIUM CHLOR 0.9% PF (SALINE LOCK) 10ML VIAL/SYR IV SCH (22:20)
--- NOTE | 2018-09-13 22:22 | NUR ---
PT ON HEPARIN GTT AT 900 UNITS/HR. APTTAT 2300 WAS 50.4, NO RATE CHANGE REQUIRED
[2018-09-13 23:14] LABS: Hematocrit 31.6 % (36.0-46.0); Hemoglobin 10.4 g/dL (12.2-16.2)
[2018-09-14] VITALS: BP 142/67
[2018-09-14 04:00] VITALS: BP 151/80
[2018-09-14 05:39] LABS: Basophils # (auto) 0.1 uL; Eosinophils # (auto) 0.5 uL; Lymphocytes # (auto) 0.7 uL; Monocytes # (auto) 0.5 uL; Neutrophils # (auto) 6.4 uL; Neutrophils % (auto) 78.3 % (37.0-80.0); White Blood Cell 8.2 10^3/uL (4.4-10.8)
[2018-09-14 05:41] LABS: Basophils % (auto) 1.1 % (0.0-2.0); Eosinophils % (auto) 6.1 % (0.0-7.0); Hematocrit 29.8 % (36.0-46.0); Lymphocytes % (auto) 8.3 % (10.0-50.0); Mean Corpuscular Hemoglobin 24.7 pg (28.0-32.0); Mean Corpuscular Hgb Conc. 33.6 g/dL (32.0-36.0); Mean Corpuscular Volume 73.6 fL (80.0-100.0); Monocytes % (auto) 6.2 % (0.0-12.0); Platelet Count (auto) 610 10^3/uL (140-450); Red Blood Cells 4.05 10^6/uL (4.0-5.20)
[2018-09-14 05:46] LABS: INR 1.09 (0.9-1.15); Prothrombin Time 11.6 sec (9.27-12.13)
[2018-09-14 05:51] LABS: Calcium 7.8 mg/dL (8.5-10.1); Potassium 3.7 mmol/L (3.5-5.1)
[2018-09-14 05:55] LABS: BUN/Creatinine Ratio 13.1
[2018-09-14] MEDS: ALBUTEROL SULF 2.5 MG/0.5ML(0.5%) NEB SOLN NEB PRN (07:25)
[2018-09-14] MEDS: IPRATROPIUM BROM 0.5 MG/2.5ML INH SOL NEB PRN (07:25)
[2018-09-14] MEDS: cefTRIAXone 1GM/50ML D5W 50 ML IV SCH (09:00)
[2018-09-14] MEDS: HYDROcodone-ACET 5/325MG TAB PO PRN ×2 (10:01→22:26)
[2018-09-14] MEDS: PANTOPRAZOLE 40 MG/10 ML VIAL IV SCH ×2 (10:01→22:07)
[2018-09-14] MEDS: SODIUM CHLOR 0.9% PF (SALINE LOCK) 10ML VIAL/SYR IV SCH ×2 (10:06→22:06)
[2018-09-14 10:57] LABS: Basophils # (auto) 0.1 uL; Eosinophils # (auto) 0.5 uL; Hemoglobin 9.6 g/dL (12.2-16.2); Lymphocytes # (auto) 0.6 uL
[2018-09-14 10:59] LABS: Basophils % (auto) 1.2 % (0.0-2.0); Eosinophils % (auto) 5.6 % (0.0-7.0); Hematocrit 28.2 % (36.0-46.0); Lymphocytes % (auto) 7.7 % (10.0-50.0); Mean Corpuscular Hemoglobin 25.3 pg (28.0-32.0); Mean Corpuscular Hgb Conc. 34.2 g/dL (32.0-36.0); Mean Corpuscular Volume 73.9 fL (80.0-100.0); Monocytes # (auto) 0.4 uL; Monocytes % (auto) 5.3 % (0.0-12.0); Neutrophils # (auto) 6.6 uL; Neutrophils % (auto) 80.2 % (37.0-80.0); Platelet Count (auto) 602 10^3/uL (140-450); Red Blood Cells 3.81 10^6/uL (4.0-5.20); White Blood Cell 8.2 10^3/uL (4.4-10.8)
[2018-09-14 11:10] LABS: Red Cell Distribution Width 28.1 % (11.8-14.3)
[2018-09-14 11:37] LABS: INR 1.21 (0.9-1.15)
[2018-09-14] MEDS ORDERED: cloNIDine HCL 0.1 MG TAB PO PRN (11:45)
[2018-09-14 11:58] VITALS: BP 143/97
[2018-09-14 12:57] LABS: Partial Thromboplastin Time > 170.00 sec (23.78-33.04)
[2018-09-14] MEDS: SODIUM BICARB 50ML SYR 50 ML in SOD CHL 0.45% 1,000 ML IV SCH (13:00)
--- NOTE | 2018-09-14 13:00 | NUR ---
COAGULATION STATUS received phone call from lab, PTT results was given, pt. made aware, heparin gtt. turned off per protocol, MILTON Gomez made aware.
--- NOTE | 2018-09-14 14:00 | NUR ---
ECHO preventative maintenance technician at bedside to obtain study.
--- NOTE | 2018-09-14 14:05 | NUR ---
HEPARIN GTT Heparin gtt turned back on to a rate of 900 units as pr protocol.
[2018-09-14] MEDS: CLINDAMYCIN 600MG IV 50 ML IV SCH ×2 (14:24→22:07)
[2018-09-14] MEDS: HEPARIN DRIP/D5W 100UNITS/ML 250 ML IV SCH ×2 (14:25→21:39)
[2018-09-14 16:00] VITALS: BP 138/73
[2018-09-14 18:43] LABS: INR 1.11 (0.9-1.15); Partial Thromboplastin Time 43.5 sec (23.78-33.04); Prothrombin Time 11.8 sec (9.27-12.13)
--- NOTE | 2018-09-14 19:15 | NUR ---
OPENING SHIFT NOTE ASSUMED CARE AFTER RECEIVING REPORT FROM [place], AWAKE AND ORIENTED WITH NO SIGNS OF DISTRESS. PER REPORT HEPARIN DRIP IS @ 900 UNITS INFUSING IN THE LEFT UPPER ARM PICC TLC, RIGHT FOOT DRESSING IS CLEAN, DRY AND INTACT, LEFT BKA NOTED, CHUA CATHETER DRAINING TO A CLEAR YELLOW URINE. BED IN LOWEST POSITION WITH SIDE RAILS UP, BED ALARM ON AND CALL LIGHT WITHIN REACH. WILL CONTINUE CARE.
[2018-09-14 20:00] VITALS: BP 153/76
--- NOTE | 2018-09-14 20:40 | NUR ---
CALLED THE PHARMACY FOR PTPTT @ 0000.
--- NOTE | 2018-09-14 21:39 | NUR ---
RECEIVED A CALL FROM [facility] (PHARMACIST) TO TITRATE HEPARIN DRIP PER PROTOCOL @ 11 ML/HR, aPTT 43.5. WILL REGULATE DRIP.
--- NOTE | 2018-09-14 22:05 | NUR ---
ELIMINATION SMALL AMOUNT OF SOFT STOOLS NOTED IN THE CHUX, CLEANSED AND KEPT DRY AND COMFORTABLE, INCONTINENCE NOTED.
--- NOTE | 2018-09-14 22:25 | NUR ---
RT NOTE: PT ASSESSED BY RT @ THIS TIME. NO SOB OR DISTRESS NOTED. SP02 97% ON ROOM AIR, HR 86, RR 17, DIMINISHED BS. PRN TX NOT INDICATED. WILL CONT TO MONITOR.
--- NOTE | 2018-09-14 22:28 | NUR ---
C/O RIGHT FOOT PAIN, SCALE 6/10. NORCO 5MG GIVEN PO ORDERED PRN. REST AND COMFORT PROVIDED.
[2018-09-15] MEDS: SODIUM BICARB 50ML SYR 50 ML in SOD CHL 0.45% 1,000 ML IV SCH (02:05)
[2018-09-15] MEDS: LORazepam 2MG/ML-1ML VIAL IV PRN (02:05)
[2018-09-15 04:31] LABS: INR 1.09 (0.9-1.15); Partial Thromboplastin Time 26.4 sec (23.78-33.04); Prothrombin Time 11.6 sec (9.27-12.13)
[2018-09-15] MEDS ORDERED: HEPARIN SODIUM (PORCINE) 5000 UNITS/ML 1ML VIAL ONE (04:51)
[2018-09-15] MEDS: HEPARIN DRIP/D5W 100UNITS/ML 250 ML IV SCH ×2 (04:52→13:23)
--- NOTE | 2018-09-15 04:52 | NUR ---
HEPARIN PTT 26.40, HEPARIN 5000 UNITS IV BOLUS GIVEN, HEPARIN DRIP INCREASED BY 3ML/HR, TITRATED TO 14ML/HR NOW PER PROTOCOL.
[2018-09-15] MEDS: HYDROcodone-ACET 5/325MG TAB PO PRN ×4 (05:21→22:12)
[2018-09-15] MEDS: CLINDAMYCIN 600MG IV 50 ML IV SCH ×3 (05:22→21:51)
--- NOTE | 2018-09-15 06:00 | NUR ---
Patient bathe/linen change Patient given CHG wipes. Skin integrity assessed for any changes. Linens and gown changed. Sacral optifoam changed. Patient repositioned for comfort.
[2018-09-15 06:08] LABS: Basophils # (auto) 0.1 uL; Monocytes # (auto) 0.5 uL
[2018-09-15 06:10] LABS: Basophils % (auto) 0.9 % (0.0-2.0); Eosinophils # (auto) 0.5 uL; Eosinophils % (auto) 5.6 % (0.0-7.0); Lymphocytes # (auto) 0.9 uL; Lymphocytes % (auto) 9.7 % (10.0-50.0); Mean Corpuscular Hemoglobin 24.5 pg (28.0-32.0); Mean Corpuscular Hgb Conc. 33.5 g/dL (32.0-36.0); Mean Corpuscular Volume 73.2 fL (80.0-100.0); Monocytes % (auto) 5.2 % (0.0-12.0); Neutrophils # (auto) 6.9 uL; Neutrophils % (auto) 78.6 % (37.0-80.0); Platelet Count (auto) 663 10^3/uL (140-450); Red Blood Cells 4.09 10^6/uL (4.0-5.20); White Blood Cell 8.8 10^3/uL (4.4-10.8)
[2018-09-15 06:13] LABS: Red Cell Distribution Width 28.1 % (11.8-14.3)
[2018-09-15 06:40] LABS: BUN/Creatinine Ratio 12.7; Calcium 7.8 mg/dL (8.5-10.1)
--- NOTE | 2018-09-15 06:50 | NUR ---
PAGED THE HOSPITALIST FOR K 3.0, AWAITING CALL BACK.
--- NOTE | 2018-09-15 07:00 | NUR ---
Wound dressing in the right foot stump and heel done.
--- NOTE | 2018-09-15 07:45 | NUR ---
returned call Mr. Reynaldo NP returned call, updated on patient status and reason for call, K 3. orders received. Continue care.
[2018-09-15] MEDS ORDERED: POTASSIUM CHL 20 Meq TABLET PO ONE ×2 (08:00→08:30)
--- NOTE | 2018-09-15 08:00 | NUR ---
REPORT RECEIVED FROM PRODUCT SAFETY PROFESSIONAL NURSE. PATIENT RESTING IN BED AT THIS TIME. RESPIRATIONS EVEN AND UNLABORED. NO SIGNS OF ACUTE DISTRESS NOTED. CALL LIGHT IN REACH, BED IN LOW POSITION.WILL CONTINUE TO MONITOR.
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
[2018-09-15] MEDS: cefTRIAXone 1GM/50ML D5W 50 ML IV SCH (09:29)
[2018-09-15] MEDS: PANTOPRAZOLE 40 MG/10 ML VIAL IV SCH ×2 (09:29→21:52)
[2018-09-15] MEDS: SODIUM CHLORIDE 0.9% 1,000 ML IV SCH (09:30)
--- NOTE | 2018-09-15 09:30 | NUR ---
DR SUTHERLAND AT BEDSIDE TO ASSESS PATIENT AND DISCUSS PLAN OF CARE. ORDERS NOTED IN CHART.
--- NOTE | 2018-09-15 10:20 | NUR ---
PATIENT COMPLAINS OF PAIN TO RIGHT FOOT. ADMINISTERED PAIN MEDICATIONS ORDERED AND REMOVED KERLIX PER PATIENT REQUEST. PATIENT STATED PAIN WENT AWAY WITHOUT KERLIX, PLACED OPTIFOAM TO TOP OF PATIENTS FOOT TO COVER WOUNDS. PATIENT STATED PAIN HAS IMPROVED AND PRESSURE IS GONE. WILL CONTINUE TO MONITOR.
[2018-09-15] MEDS: SODIUM CHLOR 0.9% PF (SALINE LOCK) 10ML VIAL/SYR IV SCH ×2 (10:21→21:52)
--- NOTE | 2018-09-15 10:30 | NUR ---
DR SIERRA AT BEDSIDE TO ASSESS PATIENT AND DISCUSS PLAN OF CARE. NO NEW ORDERS AT THIS TIME.
[2018-09-15 10:37] LABS: INR 1.45 (0.9-1.15)
--- NOTE | 2018-09-15 10:51 | NUR ---
PATIENT ASSISTED UP TO CHAIR WITH PHYSICAL THERAPY. PATIENT TOLERATED WELL. WILL CONTINUE TO MONITOR.
[2018-09-15] MEDS: POTASSIUM CHL 20MEQ/100ML 100 ML IV SCH ×2 (11:02→12:48)
--- NOTE | 2018-09-15 11:30 | NUR ---
PATIENT ASSISTED BACK TO BED WITH PHYSICAL THERAPY.
--- NOTE | 2018-09-15 11:45 | NUR ---
STOPPED HEPARIN DRIP PER PROTOCOL FOR ELEVATED PTT.
[2018-09-15 11:52] LABS: Partial Thromboplastin Time > 170.00 sec (23.78-33.04)
[2018-09-15 11:54] VITALS: BP 148/43
--- NOTE | 2018-09-15 13:15 | NUR ---
DR THORPE AT BEDSIDE TO ASSESS PATIENT AND DISCUSS PLAN OF CARE. ORDERS NOTED IN CHART.
--- NOTE | 2018-09-15 13:23 | NUR ---
RESTARTED HEPARIN DRIP TO 100UNITS ITZEL HOUR PER PROTOCOL.
--- NOTE | 2018-09-15 14:37 | NUR ---
Nutrition Follow-up Notes Wt.: 63.0 kg based on bed scale today. Pt's sitting up on bedside chair family member and RN at bedside, denies any discomfort except for emesis earlier that's why she didn't eat breakfast. Pt states that she's not sure about her usual weight, however probably lost weight d/t decreased food intake few months associate counsel. Pt's a picky eater, usually has fair appetite, eats small meals regularly, NKFA and not into any special diets associate counsel. Pt's not dialysis, currently on Renal Standard diet with inadequate PO intake aeb 25% consumed meal as of last night. Encouraged to increase food intake through small frequent meals as tolerated. Reinforced nutrition educ. re: Renal diet r/t current medical condition and she verbalized understanding. Noted pt's for active Podiatry consult and to start on Coumadin today. Est. Needs BW 53 [id number] kcal (25-30 kcal/kgBW), 42-53 gms pro (0.8-1.0 gms/kgBW r/t elev RFT). Will continue to monitor pertinent labs and reassess nutrient needs prn. Labs: Gluc 69 L, K 3.0 L, BUN 55 H, Cr 4.33 H (trending down), Ca 7.8 L, Tpro 6.0 L, Alb 1.9 L Skin: Senthil scale 11, high risk, multiple pressure ulcers in left buttock, right heel, hip per RN doc. Pls refer wound care RNs notes for details re: tx plans GI: Pt had 1 BM 09/13/18 per cable tender. PES: Altered nutrition related lab values r/t current/chronic medical condition aeb elev RFT, severe hypoalb Will continue to monitor PO intake, skin status, pertinent labs and weight trend. F/u in 3 to 5days. Rec.: 1.) If renal labs remains elev., consider Renal Specific: 50 gms pro, 2 gms Na diet. 2.) If pt's PO intake remains inadequate (<75%), consider Ensure Enlive 1 carton BID. 3.) Consider daily MVI with minerals and Asc acid 500 mgs BID. 4.) If Albumin level continues trending down with improved renal labs, consider Prostat 1 pkt BID. 5.) Continue close supervision and feeding assistance prn during meals. 6.) Refer to RD for further nutrition educ. and weight monitoring upon discharge. 7.) Continue current plan of care.
[2018-09-15] MEDS: ONDANSETRON HCL 4 MG/2 ML VIAL IV PRN (15:03)
[2018-09-15 15:52] VITALS: BP 133/68
--- NOTE | 2018-09-15 16:01 | NUR ---
assessment Patient is a 72 year old female who is alert and oriented. Patients cognitive abilities are intact. Prior to admission patient lived home alone and functioned with assistance from her caregiver. Per patient she will return home to her prior living arrangements post discharge or may need rehab. Patient informed me she has a fww and a cane for home use. Prior to admission patient was [facility] with [facility]. [facility] is not resuming service. Patient does not want hospice. Patients post discharge needs to be determined prior to discharge. I informed patient she has a right to speak to a marriage and family social worker regarding all care. I informed patient she has a right to participate in any and all discharge planning. Patient is aware of visiting hours on the hospital floor. I informed patient she has a right to privacy. Patient does not have a POA and advanced directive. I have offered patient information on POA and advanced directives. I informed the patient the advantages and benefits of having an Advanced Directive. Patient verbalized understanding and agreed to discharge plan. Per ss consult unable to make decisions. Patient is alert and oriented x 4. Patient is able to make her own decisions. Addendum: 09/15/18 at 1606 by Merry GREGORY Amended: Links added.
[2018-09-15] MEDS ORDERED: WARFARIN SODIUM 2 MG TAB PO ONE (17:00)
--- NOTE | 2018-09-15 17:37 | NUR ---
PICC LINE DRESSING CHANGED USING STERILE TECHNIQUE. PATIENT TOLERATED WELL.
--- NOTE | 2018-09-15 17:58 | NUR ---
Received reports from Iona RN ASIM, patient is alert and oriented, not in respiratory distress. Patient oriented to floor policy, bed alarm on and side rails up x2. Will continue to monitor.
--- NOTE | 2018-09-15 18:00 | NUR ---
PATIENT TRANSFERRED TO ROOM 274A ON TELE HC20 DELINE RN INFORMED OF PATIENT ARRIVAL. NO SIGNS OF DISTRESS NOTED.
[2018-09-15] MEDS: ENSURE CLEAR Mixed Berry 8oz Carton PO SCH (19:02)
--- NOTE | 2018-09-15 19:30 | NUR ---
Opening Shift Note Assumed care of patient, awake and alert. No S/S of distress/SOB. Noted right foot stump dressing dry and intact, pal draining to light ivonne urine. Instructed on POC and to call for assist PRN, patient verbalized understanding, call light within reach, will continue to monitor for changes Q1hr and PRN.
--- NOTE | 2018-09-15 20:35 | NUR ---
Respiratory note: PT CURRENTLY ON ROOM AIR: HR 68, RR 16, 94% WITH DIMINISHED BS T/O. PT SHOWS NO S/S OF ANY RESPIRATORY DISTRESS. INFORMED PT OF SOB TO CONTACT RESPIRATORY FOR BREATHING TX. WILL CONTINUE TO MONITOR.
[2018-09-15 20:56] LABS: INR 1.27 (0.9-1.15)
--- NOTE | 2018-09-15 21:30 | NUR ---
Received critical PTT of >170. Stopped Heparin drip per protocol at this time. Paged hospitalist, awaiting call back
[2018-09-15 21:38] LABS: Partial Thromboplastin Time > 170.00 sec (23.78-33.04)
[2018-09-15 21:56] VITALS: BP 141/69
--- NOTE | 2018-09-15 22:30 | NUR ---
Resumed Heparin drip and decreased to 8 ml/hr per protocol. Will check PTT post 6 Hours, will continue to monitor
[2018-09-16] MEDS: SODIUM CHLORIDE 0.9% 1,000 ML IV SCH ×2 (01:10→19:15)
--- NOTE | 2018-09-16 02:25 | NUR ---
Unable to draw blood from PICC, called biofuels research scientist to draw for PTT
--- NOTE | 2018-09-16 03:25 | NUR ---
PTT result of 33.10, bolus Heparin 5000 units per protocol and increased rate to 11 ml/hr, will check again PTT post 6 hours, will endorse to dayshift RN
[2018-09-16 04:14] VITALS: BP 141/69
[2018-09-16 04:26] LABS: INR 1.23 (0.9-1.15); Partial Thromboplastin Time 33.1 sec (23.78-33.04)
[2018-09-16 04:30] LABS: Alanine Aminotransferase 7 U/L (13-56); Albumin 1.9 g/dL (3.4-5.0); Anion Gap 10 (5-15); Aspartate Aminotransferase 11 U/L (15-37); Blood Urea Nitrogen 40 mg/dL (7-18); Calcium 7.6 mg/dL (8.5-10.1); Carbon Dioxide 25 mmol/L (21-32); Chloride 107 mmol/L (98-107); GFR African American 18 mL/min; GFR Non-African American 15 mL/min; Glucose 61 mg/dL (74-106); Potassium 3.3 mmol/L (3.5-5.1); Sodium 142 mmol/L (136-145)
[2018-09-16 04:33] LABS: Alkaline Phosphatase 65 U/L (45-117); Bilirubin, Total 0.3 mg/dL (0.2-1.0)
[2018-09-16] MEDS ORDERED: HEPARIN SODIUM (PORCINE) 5000 UNITS/ML 1ML VIAL IV ONE (05:15)
[2018-09-16] MEDS: CLINDAMYCIN 600MG IV 50 ML IV SCH ×3 (05:41→22:48)
[2018-09-16 05:51] VITALS: BP 152/65
--- NOTE | 2018-09-16 07:32 | NUR ---
Opening Shift Note Assumed care of patient, awake and alert. No S/S of distress/SOB or pain. Call light placed within reach. Instructed on POC and to call for assist PRN, will continue to monitor for changes Q1hr and PRN.
[2018-09-16] MEDS: ENSURE CLEAR Mixed Berry 8oz Carton PO SCH ×3 (08:00→18:00)
--- NOTE | 2018-09-16 08:39 | NUR ---
Respiratory note: ASSESSED PT FOR PRN TX PT WAS AWAKE AND ALERT NO RESP DISTRESS NOTED. HR 95, RR 16, SPO2 95% ON R/A. BS ARE DIMINISHED, PT KNOWS TO HAVE RT PAGED IF TX IS NEEDED.
[2018-09-16] MEDS: ONDANSETRON HCL 4 MG/2 ML VIAL IV PRN ×3 (09:20→22:49)
[2018-09-16] MEDS: cefTRIAXone 1GM/50ML D5W 50 ML IV SCH (09:20)
[2018-09-16] MEDS: PANTOPRAZOLE 40 MG/10 ML VIAL IV SCH ×2 (09:20→20:43)
[2018-09-16] MEDS: HYDROcodone-ACET 5/325MG TAB PO PRN ×3 (09:20→20:43)
[2018-09-16 11:40] LABS: INR 1.32 (0.9-1.15)
[2018-09-16 11:49] LABS: Partial Thromboplastin Time > 170.00 sec (23.78-33.04)
--- NOTE | 2018-09-16 11:50 | NUR ---
Critical APTT Received critical PTT of >170. Stopped Heparin drip per protocol at this time. Paged hospitalist, awaiting call back
--- NOTE | 2018-09-16 12:03 | NUR ---
Received call back from hospitalist regarding critical PTT. To notify pharmacy and observe protocol.
[2018-09-16] MEDS: SODIUM CHLOR 0.9% PF (SALINE LOCK) 10ML VIAL/SYR IV SCH ×2 (12:52→22:49)
[2018-09-16 12:54] LABS: Basophils # (auto) 0.1 uL; Eosinophils # (auto) 0.4 uL; Mean Corpuscular Hemoglobin 24.3 pg (28.0-32.0); Monocytes # (auto) 0.5 uL; Platelet Count (auto) 747 10^3/uL (140-450)
[2018-09-16 12:55] LABS: Basophils % (auto) 1.3 % (0.0-2.0); Eosinophils % (auto) 4.4 % (0.0-7.0); Hematocrit 29.9 % (36.0-46.0); Hemoglobin 9.8 g/dL (12.2-16.2); Lymphocytes # (auto) 0.6 uL; Lymphocytes % (auto) 7.7 % (10.0-50.0); Mean Corpuscular Hgb Conc. 32.7 g/dL (32.0-36.0); Mean Corpuscular Volume 74.5 fL (80.0-100.0); Monocytes % (auto) 5.5 % (0.0-12.0); Neutrophils # (auto) 6.7 uL; Neutrophils % (auto) 81.1 % (37.0-80.0); Red Blood Cells 4.02 10^6/uL (4.0-5.20); White Blood Cell 8.3 10^3/uL (4.4-10.8)
[2018-09-16 13:00] VITALS: BP 133/69
--- NOTE | 2018-09-16 13:00 | NUR ---
Patient off unit for MRI with technicians.
[2018-09-16 13:04] LABS: Red Cell Distribution Width 27.6 % (11.8-14.3)
--- NOTE | 2018-09-16 13:40 | NUR ---
Patient returned to unit. MRI unsuccessful, patient was unable to tolerate procedure.
--- NOTE | 2018-09-16 13:45 | NUR ---
Heparin Resumed Heparin drip and decreased to 8 ml/hr per protocol. Will check PTT post 6 Hours.
--- NOTE | 2018-09-16 15:30 | NUR ---
Dr. Morales at bedside.
[2018-09-16 16:59] VITALS: BP 100/55
[2018-09-16] MEDS ORDERED: WARFARIN SODIUM 1 MG TAB PO ONE (17:00)
[2018-09-16] MEDS: Ensure Enlive Strawberry 8oz Bottle PO SCH (19:15)
[2018-09-16] MEDS: Pro-Stat SF 30ml Vanilla PO SCH (19:16)
--- NOTE | 2018-09-16 19:30 | NUR ---
Opening Shift Note Assumed care of patient, awake and alert. No S/S of distress/SOB. Instructed on POC and to call for assist PRN, will continue to monitor for changes Q1hr and PRN.
--- NOTE | 2018-09-16 20:05 | NUR ---
Called lab regarding PTT draw for the patient. They stated that she was a hard stick and combative, but there will be clinical laboratory science professor coming shortly.
--- NOTE | 2018-09-16 21:10 | NUR ---
CALLED LAB AGAIN FOR PTPTT - THEY SAID THEY WILL COME SOON.
--- NOTE | 2018-09-16 21:20 | NUR ---
Respiratory note: PT ASSESSED FOR PRN MED NEB TX. HR 83, RR16, SPO2 94% ON R/A, BS CLEAR/DIMINISHED. N0 SIGNS OF ANY RESPIRATORY DISTRESS NOTED. ADVISED PT TO PLEASE CALL IF NEEDED.
[2018-09-16 22:00] VITALS: BP 142/74
--- NOTE | 2018-09-16 22:00 | NUR ---
BASED ON LAB RESULTS OF PTPTT 35.5 - FOLLOWING PROTOCOL FOR HEPARIN DRIP - NO BOLUS GIVEN AND INCREASED RATE TO 10 ML/HR FROM 8 ML/HR. WILL CONTINUE TO MONITOR.
[2018-09-16 22:30] LABS: INR 1.44 (0.9-1.15); Partial Thromboplastin Time 35.5 sec (23.78-33.04); Prothrombin Time 15.1 sec (9.27-12.13)
[2018-09-16] MEDS: ASCORBIC ACID 500 MG TAB PO SCH (22:48)
[2018-09-17] MEDS: HYDROcodone-ACET 5/325MG TAB PO PRN ×4 (05:25→21:11)
[2018-09-17 05:28] VITALS: BP 145/68
[2018-09-17 05:30] LABS: Basophils # (auto) 0.1 uL; Eosinophils # (auto) 0.5 uL; Lymphocytes # (auto) 0.7 uL
[2018-09-17 05:32] LABS: Eosinophils % (auto) 5.4 % (0.0-7.0); Hematocrit 33.3 % (36.0-46.0); Hemoglobin 10.8 g/dL (12.2-16.2); Lymphocytes % (auto) 7.8 % (10.0-50.0); Mean Corpuscular Hemoglobin 24.4 pg (28.0-32.0); Mean Corpuscular Hgb Conc. 32.4 g/dL (32.0-36.0); Mean Corpuscular Volume 75.1 fL (80.0-100.0); Monocytes # (auto) 0.4 uL; Monocytes % (auto) 4.7 % (0.0-12.0); Neutrophils # (auto) 7.6 uL; Neutrophils % (auto) 81.1 % (37.0-80.0); Red Blood Cells 4.43 10^6/uL (4.0-5.20); White Blood Cell 9.4 10^3/uL (4.4-10.8)
[2018-09-17 05:33] LABS: Red Cell Distribution Width 27.5 % (11.8-14.3)
[2018-09-17 05:34] LABS: Platelet Count (auto) 760 10^3/uL (140-450)
[2018-09-17 05:41] LABS: INR 1.75 (0.9-1.15); Partial Thromboplastin Time 34.3 sec (23.78-33.04); Prothrombin Time 18.1 sec (9.27-12.13)
[2018-09-17 05:44] LABS: Anion Gap 12 (5-15); BUN/Creatinine Ratio 12.1; Blood Urea Nitrogen 31 mg/dL (7-18); Calcium 7.8 mg/dL (8.5-10.1); Carbon Dioxide 21 mmol/L (21-32); Chloride 108 mmol/L (98-107); GFR African American 24 mL/min; GFR Non-African American 20 mL/min; Glucose 74 mg/dL (74-106); Potassium 3.2 mmol/L (3.5-5.1); Sodium 141 mmol/L (136-145)
--- NOTE | 2018-09-17 06:00 | NUR ---
Based on available labs - PTT was 34.3. No bolus 5000 unit bottles available. Elevated rate from 10ml/hr to 13ml/hr. Will continue to monitor.
[2018-09-17] MEDS: CLINDAMYCIN 600MG IV 50 ML IV SCH ×3 (06:02→21:10)
--- NOTE | 2018-09-17 06:29 | NUR ---
Received critical lab for platelets at 760. Paged hospitalist. Received call back and no new orders given.
--- NOTE | 2018-09-17 07:40 | NUR ---
Opening Shift Note Assumed care of patient, awake and alert in bed. No S/S of distress/SOB or pain. Continuous heparin infusion at 13mls/hr. Instructed on POC and to call for assist PRN, will continue to monitor for changes Q1hr and PRN.
[2018-09-17] MEDS: ENSURE CLEAR Mixed Berry 8oz Carton PO SCH ×3 (08:00→17:56)
--- NOTE | 2018-09-17 08:12 | NUR ---
ASSESSED PT FOR PRN MED NEB TX, PT SHOWS NO SIGNS OF RESPIRATORY DISTRESS, NO SOB NOTED, PT ON RA WITH A SPO2 93%, HR 20, RR 18, WITH CLEAR/DIMINISHED BS. WILL CONTINUE TO MONITOR PT.
[2018-09-17] MEDS: HEPARIN DRIP/D5W 100UNITS/ML 250 ML IV SCH ×3 (08:38→19:49)
[2018-09-17 08:51] VITALS: BP 144/67
[2018-09-17] MEDS: PANTOPRAZOLE 40 MG/10 ML VIAL IV SCH ×2 (09:36→21:09)
[2018-09-17] MEDS: cefTRIAXone 1GM/50ML D5W 50 ML IV SCH (09:36)
[2018-09-17] MEDS: ONDANSETRON HCL 4 MG/2 ML VIAL IV PRN (09:36)
[2018-09-17] MEDS: Ensure Enlive Strawberry 8oz Bottle PO SCH ×3 (09:37→17:56)
[2018-09-17] MEDS: Pro-Stat SF 30ml Vanilla PO SCH ×2 (09:37→17:56)
[2018-09-17] MEDS: MULTIPLE VITAMINS W/ MINERALS TAB PO SCH (09:38)
[2018-09-17] MEDS: SODIUM CHLOR 0.9% PF (SALINE LOCK) 10ML VIAL/SYR IV SCH ×2 (09:38→21:10)
[2018-09-17] MEDS: ASCORBIC ACID 500 MG TAB PO SCH ×2 (09:38→21:11)
[2018-09-17] MEDS: SODIUM CHLORIDE 0.9% 1,000 ML IV SCH (09:39)
[2018-09-17 13:00] VITALS: BP 133/65
[2018-09-17] MEDS ORDERED: POTASSIUM CHLORIDE 8 MEQ TAB PO ONE (13:45)
[2018-09-17 14:08] LABS: INR 1.91 (0.9-1.15); Prothrombin Time 19.7 sec (9.27-12.13)
[2018-09-17 14:11] LABS: Partial Thromboplastin Time 138.2 sec (23.78-33.04)
--- NOTE | 2018-09-17 14:30 | NUR ---
Critical APTT Received critical PTT of 138.20. Stopped Heparin drip per protocol at this time. Hospitalist aware.
[2018-09-17] MEDS: GABAPENTIN 300 MG CAP PO SCH ×2 (15:02→21:11)
--- NOTE | 2018-09-17 15:30 | NUR ---
Heparin Resumed Heparin drip and decreased to 10 ml/hr per protocol. Will check PTT post 6 Hours.
[2018-09-17 17:00] VITALS: BP 148/78
[2018-09-17] MEDS ORDERED: WARFARIN SODIUM 2 MG TAB PO ONE (17:00)
--- NOTE | 2018-09-17 19:50 | NUR ---
Respiratory note: PT ASSESSED FOR PRN MED NEB TX. HR 80, RR 14, SPO2 95% ON R/A, BS CLEAR T/O. NO SIGNS OF ANY RESPIRATORY DISTRESS NOTED. ADVISED PT TO MYCHAL CALL IF NEEDED.
[2018-09-17] MEDS: LORazepam 2MG/ML-1ML VIAL IV PRN (21:09)
[2018-09-17 21:33] VITALS: BP 143/72
--- NOTE | 2018-09-17 21:45 | NUR ---
PTT resulted and showing 61.6. Per protocol - therapeutic level - no change. Maintain at 10 ml/hr. Will continue to monitor.
[2018-09-17 22:09] LABS: INR 2.15 (0.9-1.15); Partial Thromboplastin Time 61.6 sec (23.78-33.04)
[2018-09-18] MEDS: HYDROcodone-ACET 5/325MG TAB PO PRN ×3 (04:53→19:40)
[2018-09-18] MEDS: CLINDAMYCIN 600MG IV 50 ML IV SCH ×3 (05:19→21:49)
[2018-09-18 05:23] VITALS: BP 154/80
[2018-09-18] MEDS: SODIUM CHLORIDE 0.9% 1,000 ML IV SCH (06:13)
[2018-09-18 06:14] LABS: Basophils # (auto) 0.1 uL; Eosinophils # (auto) 0.6 uL; Mean Corpuscular Hgb Conc. 32.8 g/dL (32.0-36.0); Red Blood Cells 4.07 10^6/uL (4.0-5.20); White Blood Cell 8.7 10^3/uL (4.4-10.8)
[2018-09-18 06:17] LABS: Basophils % (auto) 1.3 % (0.0-2.0); Eosinophils % (auto) 6.8 % (0.0-7.0); Hematocrit 30.5 % (36.0-46.0); Lymphocytes % (auto) 11.1 % (10.0-50.0); Mean Corpuscular Hemoglobin 24.5 pg (28.0-32.0); Mean Corpuscular Volume 74.8 fL (80.0-100.0); Monocytes # (auto) 0.5 uL; Monocytes % (auto) 6.2 % (0.0-12.0); Neutrophils # (auto) 6.5 uL; Neutrophils % (auto) 74.6 % (37.0-80.0); Platelet Count (auto) 684 10^3/uL (140-450)
[2018-09-18 06:33] LABS: BUN/Creatinine Ratio 11.3; Calcium 7.8 mg/dL (8.5-10.1)
[2018-09-18 06:35] LABS: Potassium 2.7 mmol/L (3.5-5.1)
[2018-09-18 06:37] LABS: Red Cell Distribution Width 27.7 % (11.8-14.3)
--- NOTE | 2018-09-18 06:41 | NUR ---
Received critical lab value for Potassium at 2.7. Paged hospitalist.
[2018-09-18 06:42] LABS: INR 2.46 (0.9-1.15)
--- NOTE | 2018-09-18 06:49 | NUR ---
Received call from hospitalist and new orders for Potassium PO [address] order and endorse to dayshift RN.
--- NOTE | 2018-09-18 06:52 | NUR ---
Received call from lab regarding critical PTT at 77.0. Will adjust rate of Heparin to 8 ml/hr. No bolus. Will endorse to gaetano ROSE.
[2018-09-18] MEDS ORDERED: POTASSIUM CHL 20 Meq TABLET PO ONE (07:00)
--- NOTE | 2018-09-18 07:20 | NUR ---
Opening Shift Note Assumed care of patient, awake and alert. No S/S of distress/SOB or pain. Instructed on POC and to call for assist PRN, will continue to monitor for changes Q1hr and PRN. Bed locked in lowest position with two side rails up and call light in reach.
[2018-09-18] MEDS ORDERED: MIDAZOLAM DRIP 50 mg/50mL 50 ML IV ONE (07:21)
[2018-09-18] MEDS: ENSURE CLEAR Mixed Berry 8oz Carton PO SCH ×3 (08:00→17:42)
[2018-09-18] MEDS: Pro-Stat SF 30ml Vanilla PO SCH ×2 (08:00→17:42)
[2018-09-18] MEDS: Ensure Enlive Strawberry 8oz Bottle PO SCH ×3 (08:00→17:42)
[2018-09-18 08:28] VITALS: BP 149/76
[2018-09-18] MEDS: cefTRIAXone 1GM/50ML D5W 50 ML IV SCH (08:29)
[2018-09-18] MEDS: GABAPENTIN 300 MG CAP PO SCH ×2 (09:58→21:50)
[2018-09-18] MEDS: MULTIPLE VITAMINS W/ MINERALS TAB PO SCH (09:58)
[2018-09-18] MEDS: ASCORBIC ACID 500 MG TAB PO SCH ×2 (09:59→21:50)
[2018-09-18] MEDS: SODIUM CHLOR 0.9% PF (SALINE LOCK) 10ML VIAL/SYR IV SCH ×2 (09:59→21:50)
[2018-09-18] MEDS: PANTOPRAZOLE 40 MG/10 ML VIAL IV SCH ×2 (09:59→21:49)
[2018-09-18 13:00] VITALS: BP 134/71
--- NOTE | 2018-09-18 14:52 | NUR ---
DR ANANYA NARAYANAN REPEAT LAB IN THE AM AND STOP HEPARIN.
--- NOTE | 2018-09-18 14:53 | NUR ---
PER DR ANANYA MELCHORCEL FOOT MRI
--- NOTE | 2018-09-18 15:00 | NUR ---
PER DR ANANYA MACKENZIE DC'Semaj
--- NOTE | 2018-09-18 15:25 | NUR ---
PT 1st PM visit, patient was asleep. 2nd PM visit, patient refused to be OOB or do PT during visit. Informed MILTON Hull about pt's refusal. Addendum: 09/18/18 at 1527 by OSORIO PANDEY PTT Amended: Links added.
[2018-09-18 17:00] VITALS: BP 149/79
[2018-09-18] MEDS ORDERED: WARFARIN SODIUM 1 MG TAB PO ONE (17:00)
--- NOTE | 2018-09-18 19:06 | NUR ---
CARE ENDORSED TO NOC NURSE NO SIGNS AND SYMPTOMS OF DISTRESS NOTED.
--- NOTE | 2018-09-18 21:30 | NUR ---
Patient unable to tolerate kumar boot for right foot. Patient stated that it is worse than having it off. Repositioned patient multiple times until patient comfortable. Patient also given PRN pain medication earlier.
[2018-09-18 22:14] VITALS: BP 129/63
[2018-09-19 03:10] VITALS: BP 129/63
[2018-09-19 04:50] VITALS: BP 164/76
[2018-09-19] MEDS: CLINDAMYCIN 600MG IV 50 ML IV SCH ×3 (05:53→21:58)
[2018-09-19] MEDS: SODIUM CHLORIDE 0.9% 1,000 ML IV SCH ×2 (05:53→12:19)
[2018-09-19 06:53] LABS: INR 2.36 (0.9-1.15); Prothrombin Time 24.1 sec (9.27-12.13)
[2018-09-19 06:56] LABS: Potassium 3.5 mmol/L (3.5-5.1)
[2018-09-19 07:04] LABS: BUN/Creatinine Ratio 11.9; Calcium 8.1 mg/dL (8.5-10.1); Magnesium 1.7 mg/dL (1.6-2.6)
[2018-09-19] MEDS: ENSURE CLEAR Mixed Berry 8oz Carton PO SCH ×3 (08:00→17:50)
[2018-09-19] MEDS: Pro-Stat SF 30ml Vanilla PO SCH ×2 (08:00→17:50)
[2018-09-19] MEDS: Ensure Enlive Strawberry 8oz Bottle PO SCH ×3 (08:00→17:50)
--- NOTE | 2018-09-19 08:44 | NUR ---
Respiratory note: ASSESSED PT FOR PRN TX PT WAS AWAKE AND ALERT NO RESP DISTRESS NOTED. HR 102, RR 16, SPO2 95% ON R/A. BS ARE CLEAR AND DIMINISHED. PT KNOWS TO HAVE RT PAGED IF TX IS NEEDED.
[2018-09-19] MEDS: cefTRIAXone 1GM/50ML D5W 50 ML IV SCH (08:50)
[2018-09-19] MEDS: ASCORBIC ACID 500 MG TAB PO SCH ×2 (08:50→08:57)
[2018-09-19] MEDS: GABAPENTIN 300 MG CAP PO SCH ×3 (08:50→21:58)
[2018-09-19] MEDS: HYDROcodone-ACET 5/325MG TAB PO PRN ×3 (08:50→18:58)
[2018-09-19] MEDS: MULTIPLE VITAMINS W/ MINERALS TAB PO SCH ×3 (08:50→08:58)
[2018-09-19] MEDS: PANTOPRAZOLE 40 MG/10 ML VIAL IV SCH (08:58)
[2018-09-19] MEDS: SODIUM CHLOR 0.9% PF (SALINE LOCK) 10ML VIAL/SYR IV SCH ×2 (08:58→21:58)
[2018-09-19 09:13] VITALS: BP 156/87
[2018-09-19] MEDS: ONDANSETRON HCL 4 MG/2 ML VIAL IV PRN (09:19)
--- NOTE | 2018-09-19 09:30 | NUR ---
PATIENT COMPLAINING OF NAUSEA AND STOMACH PAIN. WILL ADMINISTER ZOFRAN ORDERED, PATIENT DOES NOT WANT PAIN MEDICATIONS AT THIS TIME. WILL CONTINUE TO MONITOR.
--- NOTE | 2018-09-19 11:30 | NUR ---
PT Patient refused to be OOB during PT visit and stated she has upset stomach and pooping all day. Addendum: 09/19/18 at 1131 by OSORIO PANDEY PTT Amended: Links added.
--- NOTE | 2018-09-19 12:00 | NUR ---
SPOKE TO DR HARE REGARDING PATIENTS STOMACH PAIN, AT THIS TIME PATIENT IS UNDER NO SIGNS AND SYMPTOMS OF DISTRESS.
[2018-09-19 13:00] VITALS: BP 158/84
[2018-09-19] MEDS ORDERED: LORazepam 2MG/ML-1ML VIAL IV PRN (14:00)
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
--- NOTE | 2018-09-19 15:00 | NUR ---
ALL PATIENTS DRESSINGS CHANGED AND PATIENT TOLERATED WELL.
--- NOTE | 2018-09-19 16:37 | NUR ---
SS ORDER FAXED TO [facility], [facility] WILL ARRANGE HH IF PT QUALIFIES
--- NOTE | 2018-09-19 16:50 | NUR ---
REMOVED PATIENT CHUA, CHUA INTACT NO SIGNS AND SYMPTOMS OF DISTRESS NOTED.
[2018-09-19 17:00] VITALS: BP 146/77
--- NOTE | 2018-09-19 20:00 | NUR ---
Opening Shift Note Assumed care of patient, awake and alert, oriented x4. No S/S of distress/SOB, pain reassessed after norco 11/22. Instructed on POC, verbalized understanding and to call for assist PRN, call light within reach, will continue to monitor for changes Q1hr and PRN. Side rails up x2, bed in lowest locked position, bed alarm on.
[2018-09-19] MEDS: PANTOPRAZOLE 40 MG TAB PO SCH (21:58)
[2018-09-19 22:00] VITALS: BP 160/76
[2018-09-20] MEDS: HYDROcodone-ACET 5/325MG TAB PO PRN ×2 (02:55→09:05)
--- NOTE | 2018-09-20 04:40 | NUR ---
Respiratory note: PT SLEEPING. PT HR 82 RR 18 SPO2 97% ON RA BS CLEAR BILATERALLY. PRN MED NEB TX NOT INDICATED AT THIS TIME. PT REMAINS STABLE WITH NO RESPIRATORY DISTRESS NOTED.
[2018-09-20] MEDS: SODIUM CHLORIDE 0.9% 1,000 ML IV SCH (05:10)
[2018-09-20 05:30] VITALS: BP 145/68
[2018-09-20] MEDS: CLINDAMYCIN 600MG IV 50 ML IV SCH (05:46)
[2018-09-20 07:25] LABS: Calcium 7.9 mg/dL (8.5-10.1); Potassium 3.6 mmol/L (3.5-5.1)
[2018-09-20 07:27] LABS: BUN/Creatinine Ratio 11.5
[2018-09-20] MEDS: ENSURE CLEAR Mixed Berry 8oz Carton PO SCH ×2 (08:00→12:00)
[2018-09-20] MEDS: Ensure Enlive Strawberry 8oz Bottle PO SCH ×2 (08:00→12:00)
[2018-09-20] MEDS: Pro-Stat SF 30ml Vanilla PO SCH (08:00)
[2018-09-20] MEDS: SODIUM CHLOR 0.9% PF (SALINE LOCK) 10ML VIAL/SYR IV SCH (08:54)
[2018-09-20 09:00] VITALS: BP 158/71
[2018-09-20] MEDS: GABAPENTIN 300 MG CAP PO SCH (09:05)
[2018-09-20] MEDS: PANTOPRAZOLE 40 MG TAB PO SCH (09:05)
[2018-09-20] MEDS: cefTRIAXone 1GM/50ML D5W 50 ML IV SCH (09:05)
[2018-09-20] MEDS: ASCORBIC ACID 500 MG TAB PO SCH (09:05)
[2018-09-20] MEDS: MULTIPLE VITAMINS W/ MINERALS TAB PO SCH (09:05)
--- NOTE | 2018-09-20 11:03 | NUR ---
PATIENT REFUSING PT THIS MORNING PER PATIENT SHE STATES SHE IS GOING HOME AND DOES NOT WANT IT. PATIENT ALSO REFUSING LABS. I WAS ABLE TO TALK TO PATIENT AND EXPLAIN THE IMPORTANCE OF LABS AND PATIENT AGREED TO HAVE THEM DONE.
[2018-09-20 11:16] LABS: INR 1.8 (0.9-1.15); Prothrombin Time 18.6 sec (9.27-12.13)
--- NOTE | 2018-09-20 11:20 | NUR ---
PT Patient agitated and wanted to go home and refused to be OOB or do PT. MILTON Hull made aware of pt's refusal. Addendum: 09/20/18 at 1125 by OSORIO PANDEY PTT Amended: Links added.
[2018-09-20] MEDS: ALBUTEROL SULF 2.5 MG/0.5ML(0.5%) NEB SOLN NEB PRN (13:31)
[2018-09-20] MEDS: IPRATROPIUM BROM 0.5 MG/2.5ML INH SOL NEB PRN (13:31)
--- NOTE | 2018-09-20 15:23 | NUR ---
Discharge instructions given as ordered. Encourage to follow up with PMD as instructed. All questions and concerns addressed. Patient verbalized understanding. Medication reconciliation form completed and copy given to patient. Home medications held in Pharmacy returned to patient patient signed and received a copy of document stating medication was returned. PICC LINE removed with catheter intact patient tolerated well. Telemetry unit returned to ICU. Patient taken to vehicle via wheelchair with all personal belongings, accompanied by staff and family member. No distress noted at time of departure.
[2018-09-20] MEDS ORDERED: WARFARIN SODIUM 2 MG TAB PO ONE (17:00)
--- NOTE | 2018-09-21 08:47 | NUR ---
HH ORDER: PT IS ON MEDICARE AND NOT [facility] SINCE PT JUST CAME OFF OF HOSPICE. I CALLED PT TO SEE IF SHE WANTED HH X2 NO ANSWER AT HOME
== END 2018-09-20 15:17 | disposition home or self-care (01) | DRG 377 ==
LOC: EDBD 16:13 → ER 16:21 → TELE 21:47 → TELE-WESTW 09-10 10:35 → ICU CENTRL 09-10 18:10 → DOU IN ICU 09-10 19:09 → TELE-WESTW 09-15 17:58
PROVIDERS: ADMIT Nurse Practitioner Family; ATTEND Internal Medicine
PROC: 30233K1 Transfusion of Nonautologous Frozen Plasma into Peripheral Vein, Percutaneous Approach (ICD-10-PCS; principal; 2018-09-09)
PROC: 30233N1 Transfusion of Nonautologous Red Blood Cells into Peripheral Vein, Percutaneous Approach (ICD-10-PCS; 2018-09-09)
PROC: 05H633Z Insertion of Infusion Device into Left Subclavian Vein, Percutaneous Approach (ICD-10-PCS; 2018-09-13)
DX: K29.71 Gastritis, unspecified, with bleeding (principal); N17.0 Acute kidney failure with tubular necrosis; E43 Unspecified severe protein-calorie malnutrition; G92 Toxic encephalopathy; N18.6 End stage renal disease; E87.2 Acidosis; I12.0 Hypertensive chronic kidney disease with stage 5 chronic kidney disease or end stage renal disease; L97.429 Non-pressure chronic ulcer of left heel and midfoot with unspecified severity; D68.9 Coagulation defect, unspecified; E11.52 Type 2 diabetes mellitus with diabetic peripheral angiopathy with gangrene; E87.5 Hyperkalemia; D25.9 Leiomyoma of uterus, unspecified; F02.80 Dementia in other diseases classified elsewhere, unspecified severity, without behavioral disturbance, psychotic disturbance, mood disturbance, and anxiety; G30.9 Alzheimer's disease, unspecified; J44.9 Chronic obstructive pulmonary disease, unspecified; T45.515A Adverse effect of anticoagulants, initial encounter; K44.9 Diaphragmatic hernia without obstruction or gangrene; E87.6 Hypokalemia; D50.0 Iron deficiency anemia secondary to blood loss (chronic); E11.22 Type 2 diabetes mellitus with diabetic chronic kidney disease; E11.621 Type 2 diabetes mellitus with foot ulcer; G89.4 Chronic pain syndrome; H54.62 Unqualified visual loss, left eye, normal vision right eye; I67.2 Cerebral atherosclerosis; K57.30 Diverticulosis of large intestine without perforation or abscess without bleeding; Z79.01 Long term (current) use of anticoagulants; Y92.89 Other specified places as the place of occurrence of the external cause; Z82.49 Family history of ischemic heart disease and other diseases of the circulatory system; Z89.512 Acquired absence of left leg below knee; Z98.51 Tubal ligation status; Z88.8 Allergy status to other drugs, medicaments and biological substances
CPT/HCPCS: 36415; 36430; 36569; 51702; 70450; 71045; 73630; 74176; 80048; 80053; 80202; 81001; 82150; 82270; 82607; 82746; 82962; 83605; 83690; 83735; 84132; 84443; 84484; 85014; 85018; 85025; 85610; 85730; 86850; 86900; 86901; 86920; 87040; 87086; 87205; 93005; 93306; 93926; 93971; 94640; 94761; 96361; 96365; 96372; 96375; 97110; 97163; 97530; 99291; A6257; C9113; G0378; J0610; J0696; J1815; J2250; J2405; J3430; J3480; J3490; J7060

== ENCOUNTER 2018-09-30 18:03 | Emergency (ER) | payer OTHER ==
[~2018-09-30] VITALS: Ht 165.1 cm; Wt 54.4 kg
[2018-09-30 20:20] LABS: Basophils # (auto) 0.1 uL; Lymphocytes # (auto) 0.8 uL; Monocytes # (auto) 0.7 uL
[2018-09-30 20:23] LABS: Basophils % (auto) 0.7 % (0.0-2.0); Eosinophils # (auto) 0 uL; Eosinophils % (auto) 0.5 % (0.0-7.0); Hematocrit 33.3 % (36.0-46.0); Lymphocytes % (auto) 9.3 % (10.0-50.0); Mean Corpuscular Hemoglobin 23.7 pg (28.0-32.0); Mean Corpuscular Hgb Conc. 32.9 g/dL (32.0-36.0); Mean Corpuscular Volume 72.1 fL (80.0-100.0); Neutrophils # (auto) 7.5 uL; Neutrophils % (auto) 81.5 % (37.0-80.0); Platelet Count (auto) 561 10^3/uL (140-450); Red Blood Cells 4.63 10^6/uL (4.0-5.20); White Blood Cell 9.2 10^3/uL (4.4-10.8)
[2018-09-30 20:30] LABS: Red Cell Distribution Width 24.4 % (11.8-14.3)
[2018-09-30 20:34] LABS: Albumin 2.9 g/dL (3.4-5.0); BUN/Creatinine Ratio 6.6; Calcium 9.1 mg/dL (8.5-10.1); Potassium 3.3 mmol/L (3.5-5.1)
[2018-09-30 20:37] LABS: Bilirubin, Total 0.7 mg/dL (0.2-1.0); Total Protein 8.2 g/dL (6.4-8.2)
[2018-09-30 22:43] VITALS: BP 144/80
[2018-09-30 23:26] LABS: INR 1.12 (0.9-1.15); Partial Thromboplastin Time 31.3 sec (23.78-33.04); Prothrombin Time 11.9 sec (9.27-12.13)
== END 2018-09-30 22:52 | disposition short-term general hospital (02) ==
LOC: EDUNIT# 18:03 → EDBD 18:03 → ER 18:13
DX: R41.82 Altered mental status, unspecified (principal); I63.9 Cerebral infarction, unspecified; I10 Essential (primary) hypertension; G30.9 Alzheimer's disease, unspecified; Z88.6 Allergy status to analgesic agent
CPT/HCPCS: 36415; 70450; 71046; 80053; 82962; 83605; 85025; 85610; 85730; 93005; 94761